=== PATIENT | male | born 1960 | race Caucasian/White ===

== ENCOUNTER 2018-08-03 10:30 | Outpatient (CLI) | payer MEDICAID, SELFPAY ==
--- NOTE | 2018-08-04 10:52 | DIABASSESS_ITS ---
DESCRIPTION/ASSESSMENT: Dimas Gao presents for medical nutrition therapy for diabetes. Food Guidelines Dimas has leftovers for breakfast; today Bel[place]ian rice with vegetables and sausage. He might have toast or bagel with butter; a hot lunch of cheeseburger or fish sticks or grilled cheese; meat, vegetable and tater tots for supper. He states he gained weight when he first moved here because he didn't know anyone or where to go, and he admits to high snacking behavior. He no longer snacks and has given up sugar sweetened beverages. Physical Activity - he admits to walking only rarely secondary to lunch capacity. Medication - Metformin 500mg BID. Only 1 day of diarrhea. A1c 6.9 Risks/Related health history - denies blood pressure problems. He states he sleeps poorly, awake frequently with snoring. He also states he has numbness in legs and feet. He had 2 toenails removed secondary to fungal infection. Coping - he admits to loneliness when his fiancee is away during the week. He denies depression. INTERVENTION: Explained diagnostic criteria for diabetes including A1c and glycemic goal. Food Guidelines - reviewed diabetes food guide and discussed what he feels is possible. He is motivated to cut back on carbohydrate and increase vegetables. Physical Activity - discussed health benefits and encouraged working toward 150 minutes weekly. He can walk around the track at after work. He will carry an umbrella. Monitoring - check his blood sugar today randomly: 117. Discussed meaning of this. Discussed benefits of glucose monitoring at home. He would like to wait to monitor after his next provider visit. He would like to concentrate on food choices and physical activity. Coping - discussed effect on blood sugar. He enjoys drawing and will do this at the end of the day when he feels most down. ACTION PLAN: Dimas will look at his carbohydrate at a meal and limit to 2-3 servings; increase vegetables begin walking the track at after work ask provider about sleep concerns Individual MNT __4__ units billed TIME IN: 2629 OUT: 5540 No DM group education series being offered at this time.
== END 2018-08-03 10:50 ==
PROVIDERS: PCP Specialist/Technologist Athletic Trainer; Visit Provider Dietitian, Registered
DX: E11.9 Type 2 diabetes mellitus without complications (principal)
CPT/HCPCS: 97802

== ENCOUNTER 2018-08-29 15:56 | Outpatient (REF) | payer MEDICAID, SELFPAY ==
[2018-08-29 21:48] LABS: Cholesterol 235 mg/dL (50-200); HDL Cholesterol 25 mg/dL (40-60); LDL CHOLESTEROL 147 mg/dL (<100); Triglyceride 363 mg/dL (30-150)
== END 2018-08-29 16:16 ==
LOC: NCHCN 15:56
PROVIDERS: PCP Specialist/Technologist Athletic Trainer; Visit Provider Specialist/Technologist Athletic Trainer
DX: E78.5 Hyperlipidemia, unspecified (principal)
CPT/HCPCS: 80061; 83721

== ENCOUNTER 2019-03-13 14:30 | Outpatient (REF) | payer MEDICAID, SELFPAY ==
[2019-03-13 22:05] LABS: ALT 153 U/L (12-78); AST 131 U/L (15-37); Albumin 3.9 g/dL (3.4-5.0); Alkaline Phosphatase 69 U/L (46-116); Anion Gap 12.6 mmol/L (3-11); BUN 17 mg/dL (7-18); Bilirubin, Total 0.7 mg/dL (0.2-1.0); CO2 24.4 mmol/L (21.0-32.0); CREATININE 1.24 mg/dL (0.70-1.30); Calcium 8.9 mg/dL (8.5-10.1); Chloride 101 mmol/L (98-107); Estimated GFR 59.88 (mL/min/1.73m2); Glucose 252 mg/dL (70-100); HDL Cholesterol 19 mg/dL (40-60); LDL CHOLESTEROL 77 mg/dL (<100); Sodium 138 mmol/L (136-145); Total Protein 8.2 g/dL (6.4-8.2)
[2019-03-13 22:23] LABS: Bilirubin, Direct 0.15 mg/dL (0.00-0.20); Creatine Kinase 415 U/L (39-308)
== END 2019-03-13 14:50 ==
LOC: NCHCN 14:30
PROVIDERS: PCP Specialist/Technologist Athletic Trainer; Visit Provider Nurse Practitioner Family
DX: E11.9 Type 2 diabetes mellitus without complications (principal); E78.5 Hyperlipidemia, unspecified; I10 Essential (primary) hypertension; R74.8 Abnormal levels of other serum enzymes
CPT/HCPCS: 80053; 80076; 82550; 83721; 83718

== ENCOUNTER 2019-05-23 11:40 | Outpatient (REF) | payer MEDICAID, SELFPAY ==
[2019-05-23 22:33] LABS: ALT 88 U/L (12-78); AST 76 U/L (15-37); LDL CHOLESTEROL 65 mg/dL (<100)
[2019-05-23 23:27] LABS: HDL Cholesterol 22 mg/dL (40-60)
[2019-05-23 23:39] LABS: Creatine Kinase 378 U/L (39-308)
== END 2019-05-23 12:00 ==
LOC: NCHCN 11:40
PROVIDERS: PCP Specialist/Technologist Athletic Trainer; Visit Provider Nurse Practitioner Family
DX: E78.5 Hyperlipidemia, unspecified (principal); I10 Essential (primary) hypertension; E11.9 Type 2 diabetes mellitus without complications; F41.8 Other specified anxiety disorders; R74.8 Abnormal levels of other serum enzymes; G47.9 Sleep disorder, unspecified
CPT/HCPCS: 82550; 83721; 83036; 83718; 84450; 84460

== ENCOUNTER 2019-11-24 08:38 | Outpatient (REF) | payer MEDICAID, SELFPAY ==
[2019-11-24 19:31] LABS: ALT 106 U/L (16-63); AST 104 U/L (15-37); Anion Gap 9.9 mmol/L (3-11); BUN 17 mg/dL (7-18); CO2 26.1 mmol/L (21.0-32.0); CREATININE 1.24 mg/dL (0.70-1.30); Calcium 9.2 mg/dL (8.5-10.1); Chloride 103 mmol/L (98-107); Creatine Kinase 561 U/L (39-308); Estimated GFR 59.67 (mL/min/1.73m2); Glucose 162 mg/dL (74-106); Sodium 139 mmol/L (136-145)
[2019-11-24 19:49] LABS: Hemoglobin A1C 7.7 % (3.8-5.6)
[2019-11-24 20:02] LABS: Calculated LDL 68 mg/dL (<100); Cholesterol 137 mg/dL (<200); HDL Cholesterol 20 mg/dL (40-60); Triglyceride 247 mg/dL (<150)
== END 2019-11-24 08:58 ==
LOC: NCHCN 08:38
PROVIDERS: PCP Specialist/Technologist Athletic Trainer; Visit Provider Nurse Practitioner Family
DX: I10 Essential (primary) hypertension (principal); E78.5 Hyperlipidemia, unspecified; E11.9 Type 2 diabetes mellitus without complications
CPT/HCPCS: 80048; 80061; 82550; 83036; 84450; 84460

== ENCOUNTER 2020-01-12 21:05 | Emergency (ER) | payer MEDICAID, SELFPAY ==
[2020-01-12 21:10] VITALS: BP 186/89; PULSE 86; RESP 18; TEMP 36.5; O2SAT 97
--- NOTE | 2020-01-12 21:15 | W.ED.GENAD ---
Discharge Plan Disposition Patient Disposition: HOME Condition: Good Discharge Details Chief Complaint: Anxiety Clinical Impression: Encounter for medical screening examination, Anxiety Primary Care Provider: Colby Gaffney ED Provider: Matty Bishop Home Meds and New Rx's Prescriptions: No Action trazodone 50 mg tablet 50 mg PO HS RF: 0 Jardiance 10 mg tablet 10 mg PO HS RF: 0 metformin 1,000 mg tablet 1,000 mg PO DAILY RF: 0 ibuprofen 600 mg tablet 600 mg PO BID RF: 0 losartan 100 mg tablet 100 mg PO DAILY RF: 0 cholecalciferol (vitamin D3) 50 mcg (2,000 unit) tablet 50 mcg PO DAILY RF: 0 Discharge Instructions Instructions: Anxiety (ED) Additional Instructions: At this time your EKG shows no signs of a heart attack. I do feel that you are correct in your initial assessment that this was a panic attack. Things are very challenging during this current political environment. I do feel that you are cleared to return to work at this time, please follow-up closely with your primary care provider at your scheduled appointment on Wednesday. If you notice any worsening of your symptoms, or any new symptoms such as vomiting, diarrhea, fever, chills, shortness of breath, chest pain, numbness, weakness, or fainting , please return immediately to the emergency department for reevaluation. Please follow up with your primary care provider as soon as possible for reassessment and reevaluation. As always, it was a pleasure participating in your medical care today. Stand Alone Forms: Work Release Referrals: Colby Gaffney [Primary Care Provider] - Medical Decision Making This is a 59-year-old male with a past medical history of borderline diabetes, hypertension, and a history of panic attacks who presents for evaluation after panic attack. Patient states that with the recent political climate, the current Covidien pandemic, in addition to his brother being very sick with an unrelated issue, he had a mild panic attack while driving to work. He felt panicked, slightly short of breath and sweaty. He was able to call his PCP who talked him through the scenario, the symptoms resolved completely. It was unrelated to exertion. He denies any significant chest pain, tearing sensation, continued difficulty breathing or other abnormality. Denies PE risk factors such as recent long car rides, immobilization, recent surgery, prior history of DVT or PE, family history of PE or DVT, morbid obesity, exogenous estrogen and smoking, hemoptysis, history of cancer. He denies any history of cardiac disease, or heart attack. He is not a smoker. He states that he has had symptoms identical to this in the past, which were panic attacks then. He states that there is no difference or change compared to normal. He presents today because his work requested that he come to be evaluated. The patient denies any recent foreign travel or contact with recent immigrants, Travelers, or peoples of [place] or [facility]. The patient denies any recent travel to high risk countries or high risk areas in the [place], or other areas of noted or significant coronavirus infection. Additionally he denies any concerning symptoms of cough, fever, shortness of breath. Physical exam is completely unremarkable. Screening EKG shows no evidence of STEMI. Signs and symptoms clinically consistent with a panic attack. Patient is requesting discharge and requesting permission to go back to work. I do feel that this is all reasonable. Patient will be discharged home. No clinical evidence of a viral infection or other abnormality concerning for cocaine. Signs and symptoms clinically inconsistent with ACS, STEMI, PE or dissection. I have extensively reviewed the treatment plan and discharge instructions with the patient. I have addressed all patient concerns at this time. The patient was made aware of what symptoms to monitor for that would warrant a return to the emergency department. Discussed the plan with the patient, they demonstrate verbal understanding and agreement with our assessment and plan at this time. EKG 21: 23 Rate 86, intervals normal, no evidence of STEMI. No significant ST elevation or depression. HPI General Date/Time Provider Initiated Documentation: 01/12/20 21:06. HPI Narrative: This is a 59-year-old male with a past medical history of borderline diabetes, hypertension, and a history of panic attacks who presents for evaluation after panic attack. Patient states that with the recent political climate, the current Covidien pandemic, in addition to his brother being very sick with an unrelated issue, he had a mild panic attack while driving to work. He felt panicked, slightly short of breath and sweaty. He was able to call his PCP who talked him through the scenario, the symptoms resolved completely. It was unrelated to exertion. He denies any significant chest pain, tearing sensation, continued difficulty breathing or other abnormality. Denies PE risk factors such as recent long car rides, immobilization, recent surgery, prior history of DVT or PE, family history of PE or DVT, morbid obesity, exogenous estrogen and smoking, hemoptysis, history of cancer. He denies any history of cardiac disease, or heart attack. He is not a smoker. He states that he has had symptoms identical to this in the past, which were panic attacks then. He states that there is no difference or change compared to normal. He presents today because his work requested that he come to be evaluated. The patient denies any recent foreign travel or contact with recent immigrants, Travelers, or peoples of [facility] or [facility]. The patient denies any recent travel to high risk countries or high risk areas in the [place], or other areas of noted or significant coronavirus infection. Additionally he denies any concerning symptoms of cough, fever, shortness of breath. Related Data Home Medications Medication Instructions Recorded Confirmed cholecalciferol (vitamin D3) 01/12/20 01/12/20 empagliflozin [Jardiance] mg 01/12/20 01/12/20 ibuprofen 01/12/20 01/12/20 losartan 01/12/20 01/12/20 metformin mg 01/12/20 01/12/20 trazodone 01/12/20 01/12/20 Allergies Allergy/AdvReac Type Severity Reaction Status Date / Time No Known Allergies Allergy Unverified 01/12/20 21:15 General Stated Complaint: Anxiety WILIAN: 4 Review of Systems All systems reviewed & are unremarkable except as noted in HPI and below PFSH Medical History (Updated 01/12/20 @ 21:19 by Matty Bishop DO) Anxiety (Chronic) Hypertension (Chronic) Prediabetes (Acute) Surgical History (Updated 01/12/20 @ 21:25 by Teresa Phan) No history of previous surgery (Acute) Exam Narrative Exam Narrative: 1.Const: Well-nourished, Well-developed, appearing stated age 2.Eyes: PERRL, no conjunctival injection, and symmetrical lids. 3.ENT: Atraumatic external nose and ears. Moist MM. Neck: Symmetric, trachea midline, No thyromegaly. 4.CVS: +S1/S2, No murmurs or gallops. Peripheral pulses 2+ and equal in all extremities. Brisk capillary refill in all extremities. 5.RESP: Unlabored respiratory effort. Clear to auscultation bilaterally. No wheezes rales or rhonchi 6.GI: Soft, Nontender/Nondistended, No hepatosplenomegaly. No guarding or rebound. 7.MSK: Normocephalic/Atraumatic, Extremities w/o deformity or ttp No cyanosis or clubbing, Normal movement of all extremities 8.Skin: Warm, Dry. No rashes or lesions. 9.Neuro: shaker flatwork II-XII grossly intact. Sensation grossly intact, no focal neurologic deficits. 10.Psych: (AAO) x3. Appropriate mood and affect Course Vital Signs Vital signs: Vital Signs Temperature 36.5 C 01/12/20 21:10 Pulse 86 01/12/20 21:10 Respiratory Rate 18 01/12/20 21:10 Blood Pressure 186/89 H 01/12/20 21:10 Pulse Oximetry 97 01/12/20 21:10 Temperature 36.5 C 01/12/20 21:10 Temperature Source Skin 01/12/20 21:10 Pulse 86 01/12/20 21:10 Respiratory Rate 18 01/12/20 21:10 Blood Pressure 186/89 H 01/12/20 21:10 Pulse Oximetry 97 01/12/20 21:10 Oxygen Delivery Method Room Air 01/12/20 21:10 Oxygen Flow Rate 0 01/12/20 21:10 Pain Level 0 01/12/20 21:10
[2020-01-12 21:27] VITALS: RESP 16
[2020-01-12 21:32] VITALS: BP 180/81
== END 2020-01-12 21:45 | disposition home or self-care (01) ==
PROVIDERS: Emergency Provider Student in an Organized Health Care Education/Training Program; PCP Specialist/Technologist Athletic Trainer
DX: F41.8 Other specified anxiety disorders (principal); Z04.89 Encounter for examination and observation for other specified reasons; I10 Essential (primary) hypertension
CPT/HCPCS: 93005; 99283; 93010

== ENCOUNTER 2020-02-28 12:03 | Outpatient (REF) | payer MEDICAID, SELFPAY ==
[2020-02-28 19:23] LABS: Calculated LDL 137 mg/dL (<100); Cholesterol 209 mg/dL (<200); HDL Cholesterol 26 mg/dL (40-60); Triglyceride 230 mg/dL (<150)
[2020-02-28 21:09] LABS: Creatine Kinase 426 U/L (39-308)
== END 2020-02-28 12:23 ==
LOC: NCHCN 12:03
PROVIDERS: PCP Specialist/Technologist Athletic Trainer; Visit Provider Nurse Practitioner Family
DX: E78.5 Hyperlipidemia, unspecified (principal); K92.1 Melena; D12.6 Benign neoplasm of colon, unspecified
CPT/HCPCS: 80061; 82550

== ENCOUNTER 2020-03-21 08:12 | Outpatient (CLI) | payer MEDICAID, SELFPAY ==
--- NOTE | 2020-03-21 07:30 | DI.US_ITS ---
EXAM: US ABDOMEN CLINICAL HISTORY: STEATOSIS OF LIVER, K76.0,ELEVATED LFT'S TECHNIQUE: Ultrasound abdomen performed using standard protocol. COMPARISON: No exams were available for comparison FINDINGS: ABDOMINAL AORTA AND IVC: Visualized portions normal caliber. PANCREAS: Normal where visualized. LIVER: The liver is enlarged at 21 cm. There is diffusely increased echogenicity consistent with mil d to moderate hepatic steatosis.. Hepatopedal flow in the Portal Vein. GALLBLADDER: Multiple stones are noted in the gallbladder. The gallbladder is somewhat contracted. No evidence of wall thickening. No pericholecystic fluid identified. BILIARY SYSTEM: Common bile duct measures 3 millimeters. No intrahepatic biliary ductal dilation. ELLIOTT'S SIGN: Negative. KIDNEYS: Kidneys are symmetric in size. No evidence of renal calculi. No evidence of hydronephrosis. No renal mass or cyst identified. SPLEEN: 14.2 cm in length.. ASCITES: None seen. IMPRESSION: Mild to moderate hepatic steatosis. No focal liver lesions are visible. Cholelithiasis.. DATA REPOSITORY:
== END 2020-03-21 08:32 ==
PROVIDERS: PCP Nurse Practitioner Family; Visit Provider Nurse Practitioner Family
DX: K76.0 Fatty (change of) liver, not elsewhere classified (principal); R79.89 Other specified abnormal findings of blood chemistry; K80.20 Calculus of gallbladder without cholecystitis without obstruction
CPT/HCPCS: 76700

== ENCOUNTER 2020-05-01 13:15 | Outpatient (REF) | payer MEDICAID, SELFPAY ==
[2020-05-01 20:46] LABS: ALT 82 U/L (16-63); AST 94 U/L (15-37); HDL Cholesterol 26 mg/dL (40-60); LDL CHOLESTEROL 83 mg/dL (<100)
[2020-05-01 21:02] LABS: Creatine Kinase 503 U/L (39-308)
== END 2020-05-01 13:35 ==
LOC: NCHCN 13:15
PROVIDERS: PCP Nurse Practitioner Family; Visit Provider Nurse Practitioner Family
DX: I10 Essential (primary) hypertension (principal); E78.5 Hyperlipidemia, unspecified; E11.9 Type 2 diabetes mellitus without complications; K76.0 Fatty (change of) liver, not elsewhere classified; R74.8 Abnormal levels of other serum enzymes
CPT/HCPCS: 82550; 83721; 83718; 84450; 84460

== ENCOUNTER 2020-07-31 11:47 | Outpatient (REF) | payer MEDICAID, SELFPAY ==
[2020-07-31 21:00] LABS: ALT 57 U/L (16-63); AST 55 U/L (15-37); HDL Cholesterol 32 mg/dL (40-60); LDL CHOLESTEROL 75 mg/dL (<100)
[2020-07-31 21:13] LABS: Creatine Kinase 329 U/L (39-308)
== END 2020-07-31 12:07 ==
LOC: NCHCN 11:47
PROVIDERS: PCP Nurse Practitioner Family; Visit Provider Nurse Practitioner Family
DX: E78.5 Hyperlipidemia, unspecified (principal); R74.8 Abnormal levels of other serum enzymes
CPT/HCPCS: 82550; 83721; 83718; 84450; 84460

== ENCOUNTER 2020-10-08 20:01 | Outpatient (REF) | payer MEDICAID, SELFPAY ==
[2020-10-10 16:38] LABS: COVID-19 RT-PCR UVMMC Result Negative (Negative)
== END 2020-10-08 20:21 ==
LOC: NCHCN 20:01
PROVIDERS: PCP Nurse Practitioner Family; Visit Provider Nurse Practitioner Family
DX: Z11.59 Encounter for screening for other viral diseases (principal)
CPT/HCPCS: U0003

== ENCOUNTER 2020-10-24 16:02 | Outpatient (REF) | payer MEDICAID, SELFPAY ==
[2020-10-27 13:19] LABS: COVID-19 RT-PCR UVMMC Result Negative (Negative)
== END 2020-10-24 16:22 ==
LOC: NCHCN 16:02
PROVIDERS: PCP Nurse Practitioner Family; Visit Provider Family Medicine
DX: Z11.59 Encounter for screening for other viral diseases (principal)
CPT/HCPCS: U0003

== ENCOUNTER 2020-10-29 18:54 | Outpatient (REF) | payer MEDICAID, SELFPAY ==
[2020-10-29 19:49] LABS: Anion Gap 11.2 mmol/L (3-11); BUN 12 mg/dL (7-18); CO2 24.8 mmol/L (21.0-32.0); CREATININE 1.17 mg/dL (0.70-1.30); Calcium 9.3 mg/dL (8.5-10.1); Chloride 103 mmol/L (98-107); Glucose 95 mg/dL (74-106); Potassium 3.7 mmol/L (3.5-5.1); Sodium 139 mmol/L (136-145)
== END 2020-10-29 19:14 ==
LOC: NCHCN 18:54
PROVIDERS: PCP Nurse Practitioner Family; Visit Provider Nurse Practitioner Family
DX: I10 Essential (primary) hypertension (principal)
CPT/HCPCS: 80048

== ENCOUNTER 2021-05-27 10:57 | Outpatient (REF) | payer MEDICAID, SELFPAY ==
[2021-05-27 14:46] LABS: Hemoglobin A1C 5.9 % (<5.7)
[2021-05-27 15:02] LABS: ALT 43 U/L (16-63); AST 46 U/L (15-37); Anion Gap 11.7 mmol/L (3-11); BUN 17 mg/dL (7-18); CO2 26.3 mmol/L (21.0-32.0); Calcium 9.6 mg/dL (8.5-10.1); Chloride 105 mmol/L (98-107); Glucose 121 mg/dL (74-106); HDL Cholesterol 33 mg/dL (40-60); LDL CHOLESTEROL 95 mg/dL (<100); Potassium 4.1 mmol/L (3.5-5.1); Sodium 143 mmol/L (136-145)
[2021-05-27 15:18] LABS: Creatine Kinase 349 U/L (39-308)
== END 2021-05-27 10:58 | disposition home or self-care (01) ==
LOC: NCHCN 10:57
PROVIDERS: PCP Nurse Practitioner Family; Visit Provider Nurse Practitioner Family
DX: I10 Essential (primary) hypertension (principal); E11.9 Type 2 diabetes mellitus without complications; E78.5 Hyperlipidemia, unspecified
CPT/HCPCS: 80048; 82550; 83721; 83036; 83718; 84450; 84460

== ENCOUNTER 2021-11-26 01:23 | Outpatient (CLI) | payer MEDICAID, SELFPAY ==
--- NOTE | 2021-11-26 | DI.US_ITS ---
Exam(s) US ABDOMEN LIMITED EXAM: US ABDOMEN LIMITED CLINICAL HISTORY: CIRRHOSIS OF LIVER,K74.60,STEATOHEPITIS, K75.81 TECHNIQUE: Ultrasound abdomen performed using standard protocol. COMPARISON: US US ABDOMEN from 03/21/2020 FINDINGS: LIVER: Enlarged at 19.4 cm. Moderately increased echogenicity. Heterogeneous echotexture consistent with cirrhosis. No focal liver lesions are seen.. GALLBLADDER: cholelithiasis. No evidence of wall thickening. No pericholecystic fluid identified. ELLIOTT'S SIGN: Negative. BILIARY SYSTEM: No intrahepatic or extrahepatic biliary ductal dilation. RIGHT KIDNEY: Normal size. No evidence of renal calculi. No evidence of hydronephrosis. No suspicious renal mass. No cyst identified. PANCREAS: Normal where visualized. ABDOMINAL AORTA AND IVC: Visualized portions normal caliber. ASCITES: None seen. IMPRESSION: Cirrhotic appearing liver. No focal mass. No ascites. Cholelithiasis. DATA REPOSITORY:
== END 2021-11-26 01:43 ==
PROVIDERS: PCP Nurse Practitioner Family; Visit Provider Nurse Practitioner Adult Health
DX: K75.81 Nonalcoholic steatohepatitis (NASH) (principal); K74.60 Unspecified cirrhosis of liver; K80.20 Calculus of gallbladder without cholecystitis without obstruction
CPT/HCPCS: 76705

== ENCOUNTER 2021-12-08 17:19 | Outpatient (REF) | payer MEDICAID, SELFPAY ==
[2021-12-08 19:54] LABS: HCT 44.9 % (40.0-50.0); HGB 14.7 g/dL (13.5-17.5); MCH 28.5 pg (27.0-33.0); MCHC 32.7 % (32.0-36.0); MPV 11.7 fL (8.0-11.0); Platelet Count 153 10^3/uL (130-400); RBC 5.16 10^6/uL (4.36-5.78); RDW 13.6 % (11.8-14.1); RDW-SD 43.9 fL; WBC 6.26 10^3/uL (4.4-10.8)
[2021-12-08 20:09] LABS: ALT 65 U/L (16-63); AST 58 U/L (15-37); Albumin 4.1 g/dL (3.4-5.0); Alkaline Phosphatase 60 U/L (46-116); BUN 13 mg/dL (7-18); Bilirubin, Total 0.9 mg/dL (0.2-1.0); Calcium 9.1 mg/dL (8.5-10.1); Chloride 105 mmol/L (98-107); Glucose 114 mg/dL (74-106); Potassium 4.2 mmol/L (3.5-5.1); Sodium 140 mmol/L (136-145)
[2021-12-08 20:16] LABS: Hemoglobin A1C 6.2 % (<5.7)
== END 2021-12-08 17:20 | disposition home or self-care (01) ==
LOC: NCHCN 17:19
PROVIDERS: PCP Nurse Practitioner Family; Visit Provider Nurse Practitioner Family
DX: E11.9 Type 2 diabetes mellitus without complications (principal); K76.6 Portal hypertension
CPT/HCPCS: 80053; 85027; 83036

== ENCOUNTER 2021-12-17 01:18 | Outpatient (CLI) | payer MEDICAID, SELFPAY ==
[2021-12-17 11:58] LABS: Source Nasal/Nares
[2021-12-17 14:19] LABS: COVID-19 PCR Negative (Negative)
== END 2021-12-17 01:19 | disposition home or self-care (01) ==
LOC: LBO 01:18
PROVIDERS: PCP Nurse Practitioner Family; Visit Provider Ophthalmology
DX: Z20.822 Contact with and (suspected) exposure to COVID-19 (principal)
CPT/HCPCS: 87635

== ENCOUNTER 2021-12-19 07:17 | Day surgery (SDC) | payer MEDICAID, SELFPAY ==
[2021-12-19 08:05] VITALS: BP 140/82; PULSE 65; RESP 16; TEMP 36.5; O2SAT 96
[2021-12-19] MEDS: Tropicam./Phenyleph. (1/2.5%) 5 ML BTL OD ×3 (08:14→08:26)
--- NOTE | 2021-12-19 08:17 | W.ANESPRE ---
General Info Date of Service Date Performed: 12/19/21 Height: 5 ft 7 in Weight: 117.3 kg Body Mass Index (BMI): 40.5 Surgical Procedure: Operation Date: 12/19/21 09:40 Proposed Procedure Side Surgeon p Cataract Extraction with IOL Implant Right Koby Pulliam MD Meds Allergies and Home Medications Allergies Allergy/AdvReac Type Severity Reaction Status Date / Time No Known Allergies Allergy Unverified 12/17/21 09:51 Home Medication Medication Instructions Recorded cholecalciferol (vitamin D3) 50 50 mcg PO DAILY 01/12/20 mcg (2,000 unit) tablet empagliflozin 10 mg tablet 10 mg PO HS 01/12/20 (Jardiance) losartan 100 mg tablet 100 mg PO DAILY 01/12/20 docusate sodium 100 mg capsule 100 mg PO BID PRN 03/04/20 (Colace) escitalopram oxalate 10 mg tablet 10 mg PO DAILY 03/04/20 gabapentin 300 mg capsule 100 mg PO TID 03/04/20 hydrocortisone 1 % topical cream 1 applic TP TID PRN 03/04/20 (Anti-Itch (hydrocortisone)) magnesium gluconate 500 mg tablet 500 mg PO BID tab 03/04/20 metformin 1,000 mg tablet 1,000 mg PO BID tab 03/04/20 trazodone 50 mg tablet 50 mg PO HS tab 03/04/20 acetaminophen 500 mg tablet 500 mg PO BID 12/16/21 atorvastatin 10 mg tablet 10 mg PO QHS 12/16/21 cyclobenzaprine 10 mg tablet 10 mg PO TID PRN 12/16/21 nadolol 20 mg tablet 20 mg PO DAILY 12/16/21 omeprazole 20 mg capsule,delayed 20 mg PO DAILY 12/16/21 release Current Visit Medications: Current Medications Generic Name Dose Route Start Last Admin Trade Name Freq PRN Reason Stop Dose Admin Acetaminophen 1,000 mg 12/19/21 06:00 Acetaminophen 500 Mg Tab PO Q4H PRN PRN Miscellaneous Medication 0 ml 12/19/21 06:00 Prednisolone 1%, Moxifloxacin 0.5%, Nepafenac 0.1% 5ml Btl OD DIRECTED [facility] Miscellaneous Medication 0 ml 12/19/21 06:00 12/19/21 08:14 Tropicam./Phenyleph. (1/2.5%) 5 Ml Btl OD 1 drp DIRECTED [facility] Administration Tetracaine HCl 0 ml 12/19/21 06:00 Tetracaine 0.5% 4 Ml Btl OD DIRECTED AN[facility] PFSH Active Problems Active Problems: Problem Status Onset Code Cortical cataract of right eye H26.9 Nuclear sclerotic cataract of right eye H25.11 Internal hemorrhoids K64.8 Medical History Medical History Acid reflux Anxiety Blood in stool Cirrhosis of liver portal hypertension/ HX esophageal varices Degeneration of cervical intervertebral disc Depression Diabetes mellitus Elevated liver enzymes External hemorrhoid History of gallstones Hyperlipidemia Hyperplastic colon polyp (~04/21/17) 03/04/20 per PCP this was done in [place]. Hypertension Increased creatine kinase level Insomnia Lower back pain Onychomycosis HU (obstructive sleep apnea) Panic attack Periodic limb movement disorder Positive occult stool blood test Prediabetes Shoulder impingement syndrome Steatosis of liver Thoracic back pain Vitamin D deficiency Surgical History Surgical History History of colonoscopy History of esophagogastroduodenoscopy (EGD) Tobacco Smoking/Tobacco Use Status: Never Alcohol Alcohol Intake: current Alcohol intake frequency: a few times a month Substance Use Substance use: Never Substance use type: does not use Vital Signs and Lab Results Vital Signs Most Recent Vital Signs in EMR: Most Recent Vital Signs Temp Pulse Resp BP Pulse Ox 36.5 C 65 16 140/82 96 12/19/21 08:05 12/19/21 08:05 12/19/21 08:05 12/19/21 08:05 12/19/21 08:05 Point of Care Results Point of Care Results: Finger Stick Blood Glucose 121 12/19/21 07:36 Lab Results Blood Type / Crossmatch: No Data to Display Complete Blood Count: White Blood Count 6.26 10^3/uL (4.4-10.8) 12/08/21 15:30 12/08/21 Red Blood Count 5.16 10^6/uL (4.36-5.78) 12/08/21 15:30 12/08/21 Hemoglobin 14.7 g/dL (13.5-17.5) 12/08/21 15:30 12/08/21 Hematocrit 44.9 % (40.0-50.0) 12/08/21 15:30 12/08/21 Platelet Count 153 10^3/uL (130-400) 12/08/21 15:30 12/08/21 Complete Metabolic Panel: Sodium Level 140 mmol/L (136-145) 12/08/21 15:30 12/08/21 Potassium Level 4.2 mmol/L (3.5-5.1) 12/08/21 15:30 12/08/21 Chloride Level 105 mmol/L (98-107) 12/08/21 15:30 12/08/21 Carbon Dioxide Level 26.0 mmol/L (21.0-32.0) 12/08/21 15:30 12/08/21 Blood Urea Nitrogen 13 mg/dL (7-18) 12/08/21 15:30 12/08/21 Creatinine 1.0 mg/dL (0.70-1.30) 12/08/21 15:30 12/08/21 Estimated GFR/1.73 m2 >= 60.00 (mL/min/1.73m2) 12/08/21 15:30 12/08/21 Calcium Level 9.1 mg/dL (8.5-10.1) 12/08/21 15:30 12/08/21 Albumin 4.1 g/dL (3.4-5.0) 12/08/21 15:30 12/08/21 Glucose Level 114 mg/dL (74-106) H 12/08/21 15:30 12/08/21 Hemoglobin A1c 6.2 % (<5.7) H 12/08/21 15:30 12/08/21 Liver Function Panel: Alanine Aminotransferase (ALT/SGPT) 65 U/L (16-63) H 12/08/21 15:30 12/08/21 Aspartate Amino Transf (AST/SGOT) 58 U/L (15-37) H 12/08/21 15:30 12/08/21 Coagulation Panel: No Data to Display Cardiac Panel: No Data to Display Arterial Blood Gas: No Data to Display Venous Blood Gas: No Data to Display Pancreas Panel: No Data to Display Thyroid Panel: No Data to Display Infectious Disease: Coronavirus (COVID-19)(PCR) Negative (Negative) 12/17/21 10:06 12/17/21 Coronavirus 2019 Source Nasal/Nares 12/17/21 10:06 12/17/21 Blood Cultures: No Data to Display Toxicology Panel: No Data to Display Anesthesia Assessment and Plan Anesthesia History Personal History: No History of Anesthesia Complications Family History: No Family History of Anesthesia Complications Exercise Tolerance Exercise Tolerance: Metabolic Equivalents<4 Pertinent Negatives Pertinent Negatives: No Symptoms of GERD (On omeprazole), No Major Cardiovascular Symptoms or Complaints, No Major Pulmonary Symptoms or Complaints and No History of CVA/TIA Cardiac & Pulmonary Exam Cardiac Exam: Normal S1/S2 Heart Sounds Pulmonary Exam: Clear Bilateral Breath Sounds Implantable Cardiac Device Does patient have a Pacemaker or an ICD?: No Airway Exam Known Difficult Airway: No Mallampati Class: 2 Mouth Opening: Normal (> 3cm) Thyromental Distance: Greater than 3 cm Facial Hair: Full Arias Neck Range of Motion: Full ROM Neck Circumference: Thick Teeth Condition: Edentulous ASA Classification ASA Score: ASA 3 Emergency Case?: No NPO Status NPO Status: NPO Clears >2 hours, Solids >8 hours Anesthesia Plan Resuscitation Status: Full Code Anesthesia Technique: MAC Anesthesia Airway Planned: Natural Airway Monitors Used: Standard Monitors Preoperative Comments:: Hx of cirrhosis, portal HTN, esophageal varicies, and panic attacks
[2021-12-19 08:38] VITALS: BMI 40.5
[2021-12-19] MEDS: Balanced Salt Soln.-PLUS 500 ML BAG (09:00)
[2021-12-19] MEDS: Tetracaine 0.5% 4 ML BTL OD (09:00)
[2021-12-19] MEDS: Lidocaine 2% Jelly 6 ML SYR (09:02)
[2021-12-19] MEDS: Duovisc Viscoelastic System EACH 1 EACH (09:03)
[2021-12-19] MEDS: Povidone-Iodine Ophth 30 ML BTL (09:03)
--- NOTE | 2021-12-19 09:17 | W.PM.DSUDISC ---
Discharge Plan Disposition Patient Disposition: HOME Condition: Good Discharge Details Attending Provider: Koby Pulliam Primary Care Provider: Netta Mccollum Home Meds and New Rx's Prescriptions: No Action docusate sodium [Colace] 100 mg capsule 100 mg PO BID PRN0RF escitalopram oxalate 10 mg tablet 10 mg PO DAILY 0RF gabapentin 300 mg capsule 100 mg PO TID 0RF magnesium gluconate 500 mg tablet 500 mg PO BID 0RF trazodone 50 mg tablet 50 mg PO HS 0RF Label Comments: TK 1/2 T PO ATN PRF INSOMNIA metformin 1,000 mg tablet 1,000 mg PO BID 0RF Label Comments: TAKE 1 TABLET BY MOUTH TWICE A DAY hydrocortisone [Anti-Itch (HC)] 1 % cream 1 applic TP TID PRN0RF Jardiance 10 mg tablet 10 mg PO HS 0RF Label Comments: TK 1 T PO D losartan 100 mg tablet 100 mg PO DAILY 0RF Label Comments: TK 1 T PO QD cholecalciferol (vitamin D3) 50 mcg (2,000 unit) tablet 50 mcg PO DAILY 0RF Label Comments: TAKE 1 TABLET BY MOUTH DAILY cyclobenzaprine 10 mg Tablet 10 mg PO TID PRN0RF atorvastatin 10 mg Tablet 10 mg PO QHS 0RF acetaminophen 500 mg Tablet 500 mg PO BID 0RF nadolol 20 mg Tablet 20 mg PO DAILY 0RF omeprazole 20 mg Capsule,Delayed Release(Dr/Ec) 20 mg PO DAILY 0RF Discharge Instructions Stand Alone Forms: Post-op Topical Cataract, Karl Hancockey (DSU) Discharge Orders Discharge Orders: Discharge Order (Routine); Ordered 12/19/21 Ordered By: Koby Pulliam DS: Diagnosis Discharge Diagnosis (1) Cortical cataract of right eye: Status: Resolved (2) Nuclear sclerotic cataract of right eye: Status: Resolved
[2021-12-19 09:18] VITALS: BP 138/81; PULSE 67; RESP 16; TEMP 36.4; O2SAT 96
--- NOTE | 2021-12-19 09:18 | W.PM.OP ---
Date of service: 12/19/21 Time of Service: 09:18 Operative Note Operative Note DATE OF PROCEDURE: 05/12/21 PRE-OP DIAGNOSIS: Nuclear/cortical cataract, right eye POST-OP DIAGNOSIS: same PROCEDURE: Cataract extraction using phacoemulsification with intraocular lens implant, right eye SURGEON: Koby Pulliam ANESTHESIA TYPE: Local By Surgeon and MAC Refer to Anesthesia Record ESTIMATED BLOOD LOSS: 0 PATHOLOGY: none sent COMPLICATIONS: None Patient was transported to: same day Patient's condition: stable Implants: Abraham & Abraham/GABE Tecnis [id number] Indications: Progressive visual loss due to cataract, right eye Procedure Description: CATARACT SURGERY OPERATIVE REPORT PREOPERATIVE DIAGNOSIS: 1. Nuclear/cortical cataract, right eye POSTOPERATIVE DIAGNOSIS: Same OPERATION: 1. Cataract extraction using phacoemulsification with posterior chamber intraocular lens implant, right eye. IOL: IOL Light Bulb Tester/Model: Abraham & Abraham / GABE Tecnis [id number] IOL Power: + 22.0 diopters IOL Serial Number: [id number] Optic Diameter: 6.0mm Haptic/Overall Diameter: 13.0mm PHACO INFO: Aniceto [employer] Vision System with OZil and Active Fluidics Cumulative Dispersed Energy (CDE): 5.55seconds SURGEON: Koby Pulliam MD, REMI ANESTHESIA: Monitored Anesthesia Care (MAC), with local sub-tenon's anesthetic infiltration COMPLICATIONS: None SPECIMENS: None INDICATIONS FOR PROCEDURE: The patient is a 61-year-old gentleman with history of diminished visual acuity in his right eye secondary to the development of nuclear/cortical cataract. He is significantly symptomatic that he desires cataract surgery and attempt to improve and maximize his vision. The option of cataract surgery was offered to the patient and he wished to proceed. PROCEDURE: The correct surgical eye was identified and marked as the right eye and the pupil was dilated in the preoperative area using mydriatics and cycloplegics. The dilated pupil size was 6.5 mm. Oral sedation was administered in the form of an Imprimis MKO Melt (midazolam 3mg/ketamine 25mg/ondansetron 2mg). The patient was brought to the operating room where cardiopulmonary monitoring was instituted and surgical time-out was performed, confirming the correct operative eye and IOL power. Topical anesthesia was administered and ophthalmic povidone-iodine 5% was instilled into the conjunctival fornices. Lidocaine gel was applied to the cornea and the phoenix-ocular area was prepped with Betadine 10% solution and draped in the usual sterile fashion for intraocular surgery, including an aperture drape. A Tegaderm transparent film dressing was cut in half and used to cover the lashes and lid margins. Care was taken to sequester the lashes and lid margins under the Tegaderm dressing. A lid speculum was placed between the lids of the operative eye and the Aniceto LuxOR Revalia operating microscope was maneuvered into position. Edilma scissors were then used to make a conjunctival buttonhole approximately 6mm posterior to the limbus in the inferonasal quadrant. Blunt dissection was carried out to expose bare sclera, and a blunt-tipped sub-tenon?s anesthesia cannula was introduced and passed posteriorly along the globe where non-preserved plain lidocaine was injected into posterior sub-Tenon?s space. A sideport knife was used to make a paracentesis port inferotemporally. Intraocular phenylephrine/lidocaine was injected into the anterior chamber. The anterior chamber was filled with viscoelastic. A 2.4mm keratome knife was used to create a half-thickness groove at the limbus and then to construct a three-plane near-clear corneal tunnel extending 2.0mm into clear cornea superiortemporally. A flap was raised on the anterior capsule and capsulorhexis forceps were used to complete a continuous curvilinear capsulorhexis of 5.5 mm. Balanced salt solution was then used to perform cortical cleaving hydrodissection and nuclear hydrodelineation until the lens could be freely rotated within the capsular bag. The lens nucleus was then disassembled and removed within the capsular bag and iris plane using phacoemulsification. Residual cortical material was removed using the I/A handpiece. The posterior capsule was carefully polished to remove as much residual lens epithelial cells as safely possible. The capsular bag was then inflated and the anterior chamber deepened with viscoelastic. The lens implant described above was inserted into the capsular bag using the GABE [place] Injector. A Kuglen hook was used to dial the IOL into position. Residual viscoelastic was then removed first from posterior to the IOL, then from the anterior chamber using the I/A handpiece. The lens implant was noted to center nicely within the capsular bag. The incisions were stromally hydrated, and the anterior chamber was reformed using BSS. Then 0.5cc of moxifloxacin 1.0mg/ml were injected into the capsular bag and anterior chamber. The incisions were checked with a Weck spear and found to be secure. Several drops of ophthalmic povidone-iodine 5% were then applied to the eye followed by two drops of Imprimis combination prednisolone/moxifloxacin/nepafenac solution. The drapes were removed and a clear plastic protective eye shield was placed over the eye. The patient was then returned to Same Day Surgery in stable condition.
[2021-12-19 09:45] VITALS: BP 140/83; PULSE 66; RESP 16; TEMP 36.8; O2SAT 95
--- NOTE | 2021-12-19 09:52 | W.ANESPOSTOP ---
Postoperative Evaluation Date, Time and Location Date Performed: 12/19/21 Time Performed: 09:18 Patient Location: Day Surgery Unit Vital Signs Most Recent Imported Vital Signs: Most Recent Vital Signs Temp Pulse Resp BP Pulse Ox 36.4 C L 67 16 138/81 96 12/19/21 09:18 12/19/21 09:18 12/19/21 09:18 12/19/21 09:18 12/19/21 09:18 Pain Score Most Recent Pain Score: Most Recent Pain Score Pain Level 0 12/19/21 09:18 Assessment Mental Status: Awake (Alert & Oriented to Patient Baseline) Airway and Respiratory Function: Patent airway with normal (patient baseline) respiratory exam Cardiovascular Function: Hemodynamically Stable Hydration Status: Adequately Hydrated Nausea & Vomiting: No Nausea or Vomiting Pain: Pt. Denies Any Pain Peripheral Nerve Block: Patient did not receive a nerve block
== END 2021-12-19 09:50 | disposition home or self-care (01) ==
PROVIDERS: PCP Nurse Practitioner Family; Visit Provider Ophthalmology
PROC: (CPT 66984; principal; 2021-12-19 09:30)
DX: H25.11 Age-related nuclear cataract, right eye (principal); I10 Essential (primary) hypertension; E11.9 Type 2 diabetes mellitus without complications; K76.0 Fatty (change of) liver, not elsewhere classified; E55.9 Vitamin D deficiency, unspecified; E78.5 Hyperlipidemia, unspecified; K21.9 Gastro-esophageal reflux disease without esophagitis
CPT/HCPCS: 66984; V2632

== ENCOUNTER 2021-12-31 02:13 | Outpatient (CLI) | payer MEDICAID, SELFPAY ==
[2021-12-31 09:37] LABS: Source Nasal/Nares
[2021-12-31 14:08] LABS: COVID-19 PCR Negative (Negative)
== END 2021-12-31 02:14 | disposition home or self-care (01) ==
LOC: LBO 02:13
PROVIDERS: PCP Nurse Practitioner Family; Visit Provider Ophthalmology
DX: Z20.822 Contact with and (suspected) exposure to COVID-19 (principal)
CPT/HCPCS: 87635

== ENCOUNTER 2022-01-02 06:30 | Day surgery (SDC) | payer MEDICAID, SELFPAY ==
[2022-01-02 06:40] VITALS: BP 116/85; PULSE 62; RESP 16; TEMP 36.5; O2SAT 98
[2022-01-02] MEDS: Tropicam./Phenyleph. (1/2.5%) 5 ML BTL OS ×3 (06:52→07:02)
--- NOTE | 2022-01-02 07:04 | ANES.PREOP_ITS ---
General Info Date of Service Date Performed: 01/02/22 Height: 5 ft 7 in Weight: 117.2 kg Body Mass Index (BMI): 40.4 Surgical Procedure: Operation Date: 01/02/22 07:40 Proposed Procedure Side Surgeon p Cataract Extraction with IOL Implant Left Koby Pulliam MD Meds Allergies and Home Medications Allergies Allergy/AdvReac Type Severity Reaction Status Date / Time No Known Allergies Allergy Verified 01/02/22 06:33 Home Medication Medication Instructions Recorded cholecalciferol (vitamin D3) 50 50 mcg PO DAILY 01/12/20 mcg (2,000 unit) tablet empagliflozin 10 mg tablet 10 mg PO HS 01/12/20 (Jardiance) losartan 100 mg tablet 100 mg PO DAILY 01/12/20 docusate sodium 100 mg capsule 100 mg PO BID PRN 03/04/20 (Colace) escitalopram oxalate 10 mg tablet 10 mg PO DAILY 03/04/20 gabapentin 300 mg capsule 100 mg PO TID 03/04/20 hydrocortisone 1 % topical cream 1 applic TP TID PRN 03/04/20 (Anti-Itch (hydrocortisone)) magnesium gluconate 500 mg tablet 500 mg PO BID tab 03/04/20 metformin 1,000 mg tablet 1,000 mg PO BID tab 03/04/20 trazodone 50 mg tablet 50 mg PO HS tab 03/04/20 acetaminophen 500 mg tablet 500 mg PO BID 12/16/21 atorvastatin 10 mg tablet 10 mg PO QHS 12/16/21 cyclobenzaprine 10 mg tablet 10 mg PO TID PRN 12/16/21 nadolol 20 mg tablet 20 mg PO DAILY 12/16/21 pantoprazole 40 mg tablet,delayed 40 mg PO DAILY 12/31/21 release Current Visit Medications: Current Medications Generic Name Dose Route Start Last Admin Trade Name Freq PRN Reason Stop Dose Admin Acetaminophen 1,000 mg 01/02/22 06:00 Acetaminophen 500 Mg Tab PO Q4H PRN PRN Miscellaneous Medication 0 ml 01/02/22 06:00 Prednisolone 1%, Moxifloxacin 0.5%, Nepafenac 0.1% 5ml Btl OS DIRECTED ANTHONY Miscellaneous Medication 0 ml 01/02/22 06:00 01/02/22 07:02 Tropicam./Phenyleph. (1/2.5%) 5 Ml Btl OS 1 drp DIRECTED ANTHONY Administration Tetracaine HCl 0 ml 01/02/22 06:00 Tetracaine 0.5% 4 Ml Btl OS DIRECTED [facility] PFSH Active Problems Active Problems: Problem Status Onset Code Internal hemorrhoids K64.8 Nuclear sclerotic cataract of right eye H25.11 Cortical cataract of right eye H26.9 Medical History Medical History Acid reflux Anxiety Blood in stool Cirrhosis of liver portal hypertension/ HX esophageal varices Degeneration of cervical intervertebral disc Depression Diabetes mellitus Elevated liver enzymes External hemorrhoid History of gallstones Hyperlipidemia Hyperplastic colon polyp (~04/21/17) 03/04/20 per PCP this was done in [place]. Hypertension Increased creatine kinase level Insomnia Lower back pain Onychomycosis HU (obstructive sleep apnea) Panic attack Periodic limb movement disorder Positive occult stool blood test Prediabetes Shoulder impingement syndrome Steatosis of liver Thoracic back pain Vitamin D deficiency Surgical History Surgical History History of colonoscopy History of esophagogastroduodenoscopy (EGD) Hx of cataract removal with insertion of prosthetic lens Tobacco Smoking/Tobacco Use Status: Never Alcohol Alcohol Intake: current Alcohol intake frequency: a few times a month Substance Use Substance use: Never Substance use type: does not use Vital Signs and Lab Results Vital Signs Most Recent Vital Signs in EMR: Most Recent Vital Signs Temp Pulse Resp BP Pulse Ox 36.5 C 62 16 116/85 98 01/02/22 06:40 01/02/22 06:40 01/02/22 06:40 01/02/22 06:40 01/02/22 06:40 Point of Care Results Point of Care Results: Finger Stick Blood Glucose 113 01/02/22 06:34 Lab Results Blood Type / Crossmatch: No Data to Display Complete Blood Count: White Blood Count 6.26 10^3/uL (4.4-10.8) 12/08/21 15:30 12/08/21 Red Blood Count 5.16 10^6/uL (4.36-5.78) 12/08/21 15:30 12/08/21 Hemoglobin 14.7 g/dL (13.5-17.5) 12/08/21 15:30 12/08/21 Hematocrit 44.9 % (40.0-50.0) 12/08/21 15:30 12/08/21 Platelet Count 153 10^3/uL (130-400) 12/08/21 15:30 12/08/21 Complete Metabolic Panel: Sodium Level 140 mmol/L (136-145) 12/08/21 15:30 12/08/21 Potassium Level 4.2 mmol/L (3.5-5.1) 12/08/21 15:30 12/08/21 Chloride Level 105 mmol/L (98-107) 12/08/21 15:30 12/08/21 Carbon Dioxide Level 26.0 mmol/L (21.0-32.0) 12/08/21 15:30 12/08/21 Blood Urea Nitrogen 13 mg/dL (7-18) 12/08/21 15:30 12/08/21 Creatinine 1.0 mg/dL (0.70-1.30) 12/08/21 15:30 12/08/21 Estimated GFR/1.73 m2 >= 60.00 (mL/min/1.73m2) 12/08/21 15:30 12/08/21 Calcium Level 9.1 mg/dL (8.5-10.1) 12/08/21 15:30 12/08/21 Albumin 4.1 g/dL (3.4-5.0) 12/08/21 15:30 12/08/21 Glucose Level 114 mg/dL (74-106) H 12/08/21 15:30 12/08/21 Hemoglobin A1c 6.2 % (<5.7) H 12/08/21 15:30 12/08/21 Liver Function Panel: Alanine Aminotransferase (ALT/SGPT) 65 U/L (16-63) H 12/08/21 15:30 12/08/21 Aspartate Amino Transf (AST/SGOT) 58 U/L (15-37) H 12/08/21 15:30 12/08/21 Coagulation Panel: No Data to Display Cardiac Panel: No Data to Display Arterial Blood Gas: No Data to Display Venous Blood Gas: No Data to Display Pancreas Panel: No Data to Display Thyroid Panel: No Data to Display Infectious Disease: 2 Coronavirus (COVID-19)(PCR) Negative (Negative) 12/31/21 08:59 12/31/21 Coronavirus 2019 Source Nasal/Nares 12/31/21 08:59 12/31/21 Blood Cultures: No Data to Display Toxicology Panel: No Data to Display Anesthesia Assessment and Plan Anesthesia History Personal History: No History of Anesthesia Complications Family History: No Family History of Anesthesia Complications Exercise Tolerance Exercise Tolerance: Metabolic Equivalents<4 Cardiac & Pulmonary Exam Cardiac Exam: Normal S1/S2 Heart Sounds Pulmonary Exam: Clear Bilateral Breath Sounds Implantable Cardiac Device Does patient have a Pacemaker or an ICD?: No Airway Exam Known Difficult Airway: No Mallampati Class: 2 Mouth Opening: Normal (> 3cm) Thyromental Distance: Greater than 3 cm Neck Range of Motion: Full ROM Neck Circumference: Thick Teeth Condition: Edentulous ASA Classification ASA Score: ASA 3 Emergency Case?: No NPO Status NPO Status: NPO Clears >2 hours, Solids >8 hours Anesthesia Plan Resuscitation Status: Full Code Anesthesia Technique: MAC Anesthesia Airway Planned: Natural Airway Monitors Used: Standard Monitors
[2022-01-02 07:06] VITALS: BMI 40.4
[2022-01-02] MEDS: Tetracaine 0.5% 4 ML BTL OS (07:26)
[2022-01-02] MEDS: Lidocaine 2% Jelly 6 ML SYR (07:26)
[2022-01-02] MEDS: Povidone-Iodine Ophth 30 ML BTL (07:26)
[2022-01-02] MEDS: Balanced Salt Soln.-PLUS 500 ML BAG (07:28)
[2022-01-02] MEDS: Duovisc Viscoelastic System EACH 1 EACH (07:28)
[2022-01-02 07:50] VITALS: BP 122/74; PULSE 62; RESP 18; TEMP 36.8; O2SAT 96
--- NOTE | 2022-01-02 07:50 | W.PM.DSUDISC ---
Discharge Plan Disposition Patient Disposition: HOME Condition: Good Discharge Details Attending Provider: Koby Pulliam Primary Care Provider: Netta Mccollum Home Meds and New Rx's Prescriptions: No Action docusate sodium [Colace] 100 mg capsule 100 mg PO BID PRN0RF escitalopram oxalate 10 mg tablet 10 mg PO DAILY 0RF gabapentin 300 mg capsule 100 mg PO TID 0RF magnesium gluconate 500 mg tablet 500 mg PO BID 0RF trazodone 50 mg tablet 50 mg PO HS 0RF Label Comments: TK 1/2 T PO ATN PRF INSOMNIA metformin 1,000 mg tablet 1,000 mg PO BID 0RF Label Comments: TAKE 1 TABLET BY MOUTH TWICE A DAY hydrocortisone [Anti-Itch (HC)] 1 % cream 1 applic TP TID PRN0RF Jardiance 10 mg tablet 10 mg PO HS 0RF Label Comments: TK 1 T PO D losartan 100 mg tablet 100 mg PO DAILY 0RF Label Comments: TK 1 T PO QD cholecalciferol (vitamin D3) 50 mcg (2,000 unit) tablet 50 mcg PO DAILY 0RF Label Comments: TAKE 1 TABLET BY MOUTH DAILY cyclobenzaprine 10 mg Tablet 10 mg PO TID PRN0RF atorvastatin 10 mg Tablet 10 mg PO QHS 0RF acetaminophen 500 mg Tablet 500 mg PO BID 0RF nadolol 20 mg Tablet 20 mg PO DAILY 0RF pantoprazole 40 mg tablet,delayed release (DR/EC) 40 mg PO DAILY 0RF Label Comments: TAKE 1 TABLET BY MOUTH EVERY DAY 30 MINUTES BEFORE SUPPER Discharge Instructions Stand Alone Forms: Post-op Topical Cataract, Karl Connelly (DSU) Discharge Orders Discharge Orders: Discharge Order (Routine); Ordered 01/02/22 Ordered By: Koby Pulliam DS: Diagnosis Discharge Diagnosis (1) Cortical cataract of left eye: Status: Resolved (2) Nuclear sclerotic cataract of left eye: Status: Resolved
--- NOTE | 2022-01-02 07:51 | ROE_ITS ---
Date of service: 01/02/22 Time of Service: 07:51 Operative Note Operative Note DATE OF PROCEDURE: 01/02/22 PRE-OP DIAGNOSIS: Nuclear/cortical cataract, left eye POST-OP DIAGNOSIS: same PROCEDURE: Cataract extraction using phacoemulsification with intraocular lens implant, left eye SURGEON: Koby Pulliam ANESTHESIA TYPE: Local By Surgeon and MAC Refer to Anesthesia Record PATHOLOGY: none sent COMPLICATIONS: None Patient was transported to: same day Patient's condition: stable Implants: Abraham and Abraham / [employer] Tecnis [id number] Indications: Progressive decreased vision due to cataract, left eye Procedure Description: CATARACT SURGERY OPERATIVE REPORT PREOPERATIVE DIAGNOSIS: 1. Nuclear/cortical cataract, left eye POSTOPERATIVE DIAGNOSIS: Same OPERATION: 1. Cataract extraction using phacoemulsification with posterior chamber intraocular lens implant, left eye. IOL: IOL Selling Specialist/Model: Abraham & Abraham / GABE Tecnis [id number] IOL Power: + 22.0 diopters IOL Serial Number: [id number] Optic Diameter: 6.0 mm Haptic/Overall Diameter: 13.0 mm PHACO INFO: An[employer] Vision System with OZil and Active Fluidics Cumulative Dispersed Energy (CDE): 3.82 seconds SURGEON: Koby Pulliam MD, REMI ANESTHESIA: Monitored A [facility] (MAC), with local sub-tenon's anesthetic infiltration COMPLICATIONS: None SPECIMENS: None INDICATIONS FOR PROCEDURE: The patient is a 61-year-old gentleman with history of diminished visual acuity in his left eye secondary to the development of nuclear and cortical cataract. He has already undergone cataract surgery in the right eye. He now presents for cataract surgery in the left. PROCEDURE: The correct surgical eye was identified and marked as the left eye and the pupil was dilated in the preoperative area using mydriatics and cycloplegics. The dilated pupil size was 7.0 mm. Oral sedation was administered in the form of an Imprimis MKO Melt (midazolam 3mg/ketamine 25mg/ondansetron 2mg). The patient was brought to the operating room where cardiopulmonary monitoring was instituted and surgical time-out was performed, confirming the correct operative eye and IOL power. Topical anesthesia was administered and ophthalmic povidone-iodine 5% was instilled into the conjunctival fornices. Lidocaine gel was applied to the cornea and the phoenix-ocular area was prepped with Betadine 10% solution and draped in the usual sterile fashion for intraocular surgery, including an aperture drape. A Tegaderm transparent film dressing was cut in half and used to cover the lashes and lid margins. Care was taken to sequester the lashes and lid margins under the Tegaderm dressing. A lid speculum was placed between the lids of the operative eye and the Ainceto LuxOR Revalia operating microscope was maneuvered into position. Edilma scissors were then used to make a conjunctival buttonhole approximately 6mm posterior to the limbus in the inferonasal quadrant. Blunt dissection was carried out to expose bare sclera, and a blunt-tipped sub-tenon?s anesthesia cannula was introduced and passed posteriorly along the globe where non- preserved plain lidocaine was injected into posterior sub-Tenon?s space. A sideport knife was used to make a paracentesis port superiorly/superiortemporally. Intraocular phenylephrine/lidocaine was injected int the anterior chamber.. The anterior chamber was filled with viscoelastic. A 2.4mm keratome knife was used to create a half-thickness groove at the limbus and then to construct a three-plane near-clear corneal tunnel extending 2.0mm into clear cornea at the 3:00 position. A flap was raised on the anterior capsule and capsulorhexis forceps were used to complete a continuous curvilinear capsulorhexis of 5.0 mm. Balanced salt solution was then used to perform cortical cleaving hydrodissection and nuclear hydrodelineation until the lens could be freely rotated within the capsular bag. The lens nucleus was then disassembled and removed within the capsular bag and iris plane using phacoemulsification. Residual cortical material was removed using the 45-degree angled silicone I/A tip with 0.3mm port. The posterior capsule was carefully polished to remove as much residual lens epithelial cells as safely possible. The capsular bag was then inflated and the anterior chamber deepened with viscoelastic. The lens implant described above was inserted into the capsular bag using the GABE [place] Injector. A Kuglen hook was used to dial the IOL into position. Residual viscoelastic was then removed first from posterior to the IOL, then from the anterior chamber using the I/A handpiece. The lens implant was noted to center nicely within the capsular bag. The incisions were stromally hydrated, and the anterior chamber was reformed using BSS. Then 0.5cc of moxifloxacin 1.0mg/ml were injected into the capsular bag and anterior chamber. The incisions were checked with a Weck spear and found to be secure. Several drops of ophthalmic povidone-iodine 5% were then applied to the eye followed by two drops of Imprimis combination prednisolone/moxifloxacin/nepafenac solution. The drapes were removed and a clear plastic protective eye shield was placed over the eye. The patient was then returned to Same Day Surgery in stable condition.
--- NOTE | 2022-01-02 08:08 | W.ANESPOSTOP ---
Postoperative Evaluation Date, Time and Location Date Performed: 01/02/22 Time Performed: 07:50 Patient Location: Day Surgery Unit Vital Signs Most Recent Imported Vital Signs: Most Recent Vital Signs Temp Pulse Resp BP Pulse Ox 36.8 C 62 18 122/74 96 01/02/22 07:50 01/02/22 07:50 01/02/22 07:50 01/02/22 07:50 01/02/22 07:50 Pain Score Most Recent Pain Score: Most Recent Pain Score Pain Level 0 01/02/22 07:50 Assessment Mental Status: Awake (Alert & Oriented to Patient Baseline) Airway and Respiratory Function: Patent airway with normal (patient baseline) respiratory exam Cardiovascular Function: Hemodynamically Stable Hydration Status: Adequately Hydrated Nausea & Vomiting: No Nausea or Vomiting Pain: Pt. Denies Any Pain Peripheral Nerve Block: Patient did not receive a nerve block
[2022-01-02 08:17] VITALS: BP 118/77; PULSE 63; RESP 16; TEMP 36.3; O2SAT 95
== END 2022-01-02 08:44 | disposition home or self-care (01) ==
LOC: SUR 08:54
PROVIDERS: PCP Nurse Practitioner Family; Visit Provider Ophthalmology
PROC: (CPT 66984; principal; 2022-01-02 07:30)
DX: H25.12 Age-related nuclear cataract, left eye (principal); E11.9 Type 2 diabetes mellitus without complications; G47.33 Obstructive sleep apnea (adult) (pediatric); E78.5 Hyperlipidemia, unspecified; Z79.84 Long term (current) use of oral hypoglycemic drugs
CPT/HCPCS: 66984; V2632

== ENCOUNTER 2022-07-28 18:41 | Outpatient (REF) | payer MEDICAID, SELFPAY ==
[2022-07-28 19:44] LABS: Hemoglobin A1C 6.3 % (<5.7)
[2022-07-28 20:03] LABS: ALT 52 U/L (16-63); AST 56 U/L (15-37); Albumin 4.1 g/dL (3.4-5.0); Alkaline Phosphatase 61 U/L (46-116); Anion Gap 10.9 mmol/L (3-11); BUN 12 mg/dL (7-18); CO2 26.1 mmol/L (21.0-32.0); Calcium 9.5 mg/dL (8.5-10.1); Chloride 105 mmol/L (98-107); Estimated GFR 85.63 (mL/min/1.73m2); Glucose 90 mg/dL (74-106); HDL Cholesterol 30 mg/dL (40-60); LDL CHOLESTEROL 59 mg/dL (<100); Potassium 3.9 mmol/L (3.5-5.1); Sodium 142 mmol/L (136-145); Total Protein 8.2 g/dL (6.4-8.2)
[2022-07-28 20:18] LABS: Creatine Kinase 491 U/L (39-308)
== END 2022-07-28 18:42 | disposition home or self-care (01) ==
LOC: NCHCN 18:41
PROVIDERS: PCP Nurse Practitioner Family; Visit Provider Nurse Practitioner Family
DX: Z00.00 Encounter for general adult medical examination without abnormal findings (principal); E78.5 Hyperlipidemia, unspecified; I10 Essential (primary) hypertension; E11.9 Type 2 diabetes mellitus without complications
CPT/HCPCS: 80053; 82550; 83721; 83036; 83718

== ENCOUNTER 2022-08-26 17:49 | Outpatient (REF) | payer MEDICAID, SELFPAY ==
--- NOTE | 2022-08-26 15:45 | SKI_PTH ---
PATIENT: Dimas Gao LOC: [facility] U#:[id number] AGE/SX: 61/M ROOM: RE08/26/[address]: Netta Mccollum : 1960 BED: DIS: 08/26/2022 SPEC #: [id number] RECD: 08/27/22 12:51 STATUS: DONNA ESPINOZA #: [id number] ARTURO: 08/26/22 15:[address]: Netta Mccollum DEPT: Surgical Specimen RECD BY: Linda Ferrer Tissues: 1 - SKIN BIOPSY(SHAVE/PUNCH) Procedures: SKIN LEVEL 4 Comments: [id number] (FORMALIN ADDED 08/27/2022 @ 11:15 am)
== END 2022-08-26 17:50 | disposition home or self-care (01) ==
LOC: NCHCN 17:49
PROVIDERS: PCP Nurse Practitioner Family; Visit Provider Nurse Practitioner Family
DX: L85.9 Epidermal thickening, unspecified (principal)
CPT/HCPCS: 88305

== ENCOUNTER 2023-01-21 01:34 | Inpatient (IN) | payer MEDICAID, SELFPAY ==
[2023-01-21] VITALS (30 sets, daily range): BP systolic 99–165; BP diastolic 60–102; PULSE 53–94; RESP 9–24; TEMP 36.3–38; O2SAT 93–97
--- NOTE | 2023-01-21 | DI.US_ITS ---
Exam(s) US ABDOMEN LIMITED EXAM: US ABDOMEN LIMITED CLINICAL HISTORY: RUQ pain, known gallstones, mild pancreatitis. TECHNIQUE: Ultrasound abdomen performed using standard protocol. COMPARISON: US US ABDOMEN LIMITED from 11/26/2021 FINDINGS: LIVER: Enlarged at 20 cm. Heterogeneous, cirrhotic appearing liver. No focal liver lesions are seen .. GALLBLADDER: Cholelithiasis. No evidence of wall thickening. No pericholecystic fluid identified. ELLIOTT'S SIGN: Negative. BILIARY SYSTEM: No intrahepatic or extrahepatic biliary ductal dilation. Right KIDNEY: No evidence of renal calculi. No evidence of hydronephrosis. No renal mass or cyst iden tified. PANCREAS: Normal where visualized. ABDOMINAL AORTA AND IVC: Visualized portions normal caliber. ASCITES: None seen. IMPRESSION: Cholelithiasis. No evidence of acute cholecystitis. Cirrhotic appearing liver. No biliary dilatation. DATA REPOSITORY:
--- NOTE | 2023-01-21 | DI.US_ITS ---
APPROVED REPORT EXAM: Comprehensive 2D, Doppler, and color-flow Echocardiogram Patient Location: In-Patient Marketing Communications Manager: Karlos Angela RDMS, RVT Indications: CP, elevated troponin Other Information Study Quality: Adequate Conclusion Normal left ventricular wall thickness and chamber size. Estimated ejection fraction is 65%. Wall m otion is normal Normal right ventricular size and systolic function Both atria are normal in size Aortic valve is trileaflet with trace regurgitation Normal mitral valve with trace regurgitation Normal tricuspid valve with trace regurgitation Wall motion Left Ventricle The left ventricle is normal size. The left ventricular systolic function is normal. The left ventric ular ejection fraction is within the normal range. There is normal left ventricular wall thickness. T here is normal LV segmental wall motion. There is no ventricular septal defect visualized. LVEF is 65 %. Right Ventricle The right ventricle is normal size. The right ventricular systolic function is normal. Atria The left atrium size is normal. The right atrium size is normal. The interatrial septum is intact wit h no evidence for an atrial septal defect. Aortic Valve The aortic valve is normal in structure. Aortic valve is trileaflet. There is no aortic valvular sten osis. Trace aortic regurgitation. Mitral Valve The mitral valve is normal in structure. No evidence of mitral valve stenosis. Trace mitral regurgit ation. Tricuspid Valve The tricuspid valve is normal in structure. There is no tricuspid valve stenosis. Trace tricuspid reg urgitation. Unable to assess PA pressure. Pulmonic Valve The pulmonary valve is normal in structure. There is no pulmonic valvular stenosis. Trivial pulmonic regurgitation. Great Vessels The aortic root is normal in size. The ascending aorta is normal in size. Aortic arch is not well vis ualized. IVC is normal in size and collapses >50% with inspiration. Pericardium There is no pericardial effusion. 2D Dimensions IVSD d PLAX 0.76 cm M: 0.6-1.2 LV Vol A2C d MOD 103.9 mL LVPW d PLAX 0.80 cm M: 0.6 - 1.2 LV Vol A4C d MOD 126.9 mL LVID d PLAX 4.45 cm M: 4.2 - 5.8 LA vol/ BSA A4C s A-L 17.1 mL/m2 LVDs 3.35 cm M: 2.5 - 4.0 LA Area A4C s MOD 14.78 cm2 Ao Root d 3.11 cm M: 3.1 - 3.7 LV EF A4C MOD 64.3 % Ao Asc Diam d 3.19 cm M: 2.6 - 3.4 LV EF A2C MOD 66.8 % LV EF Teichholz 51.9 % LV EF Biplane MOD 64.3 % LVEF (Welsh's) 64.26 % M: 52 - 72 SV 73.64 mL LV Volume 99.18 mL M: 62 - 150 SV Index 34.01 mL/m2 LV Volume Index 45.70 mL/m2 M: 34 - 74 LV Vol Biplane MOD 114.6 mL FS 26.45 % M-Mode TAPSE 3.18 cm (M/F) >1.7 LV Diastology MV E' medial 0.134 (>0.07 m/s) E/A Ratio 0.8 LV E/e MED 5.80 (<14) MV E Vmax 0.78 (0.4-1.3 m/s) MV E' lateral 0.101 (>0.1 m/s) MV A Vmax 0.95 (0.4-1.3 m/s) LV E/e LAT 7.70 (<14) MV E/A Ratio 0.80 MV E/E' medial 5.82 MV E/E' lateral 7.71 Aortic Valve LVOT Area 3.14 cm2 AoV Area Vmax 2.52 cm2 LVOT Vmax 1.17 m/s AoV Area/ BSA (Vmax) 1.16 cm2/m2 LVOT Mean Bernardo. 0.88 m/s FRIEDA Mean Bernardo. 2.27 cm2 LVOT Peak Grad 5.5 mmHg FRIEDA Mean Bernardo. Index 1.05 cm2/m2 LVOT Mean Grad 3.4 mmHg AR DT 2176 msec LVOT VTI 0.262 m AR PHT 631 msec LVOT Diam s 1.95 cm AoV Vmax 1.46 m/s Velocity Ratio 0.80 AoV Mean Bernardo. 1.21 m/s AoV Peak Grad 8.5 mmHg LVOT SV 82.31 mL AoV Mean Grad 6.2 mmHg AoV VTI 0.312 m AoV Area VTI 2.64 cm2 AoV Area/ BSA (VTI) 1.22 cm/m2 Mitral Valve MV DT 270 (160-240 msec) MV PHT 78 msec MV Area PHT 2.81 cm2 MV VTI 0.329 m MV Area VTI 2.50 (4.0-6.0 cm2) Pulmonary Valve PV Vmax 1.19 (0.5-1.5 m/s) RVOT Peak Gr. 1.91 mmHg PV Peak Grad 5.7 mmHg RVOT Mean Gr. 1.10 mmHg PV Mean Grad 3.6 mmHg RVOT VTI 0.167 m PV VTI 0.229 m RVOT Vmax 0.69 m/s Tricuspid Valve RA Pressure 3.00 mmHg
--- NOTE | 2023-01-21 01:45 | RT.EKG_ITS ---
APPROVED REPORT Exam: Resting ECG Reason for Exam: chest pain Patient Location: E HR:83 bpm ECG Measurements Heart Rate 83 AXIS NM 167 P 51 QRSd 96 QRS 80 QT 381 T 52 QTc 448 Conclusion Sinus rhythm...normal P axis, V-rate 60- 99 Probable left atrial enlargement...P >50mS, <-0.10mV V1
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
[2023-01-21] MEDS: LORazepam 1 MG TAB PO (02:02)
[2023-01-21 02:03] LABS: Abs Immature Grans 0.09 10^3/uL (0.0-0.06); Absolute Eosinophil Count 0.08 10^3/uL (0.0-0.7); Absolute Monocyte Count 1.48 10^3/uL (0.1-0.8); Basophils % 0.7; Eosinophils % 0.6; HCT 42.7 % (40.0-50.0); HGB 14.3 g/dL (13.5-17.5); Immature Grans % 0.7; Lymphocytes % 17.8; MCH 26.4 pg (27.0-33.0); MCHC 33.5 % (32.0-36.0); MCV 79 fL (80-95); MPV 10.6 fL (8.0-11.0); Monocytes % 10.8; Neutrophils % 69.4; Platelet Count 232 10^3/uL (130-400); RBC 5.42 10^6/uL (4.36-5.78); RDW 14.6 % (11.8-14.1); RDW-SD 41.2 fL; WBC 13.68 10^3/uL (4.4-10.8)
[2023-01-21] MEDS: Ketorolac 15 MG/ML VIAL IVP (02:03)
[2023-01-21 02:04] LABS: Absolute Lymphocyte Count 2.44 10^3/uL (1.2-3.4); Absolute Neutrophil Count 9.49 10^3/uL (1.2-6.7)
[2023-01-21 02:14] LABS: Lipase 100 U/L (16-77)
[2023-01-21 02:23] LABS: ALT 77 U/L (16-63); AST 50 U/L (15-37); Albumin 4.1 g/dL (3.4-5.0); Alkaline Phosphatase 83 U/L (46-116); Anion Gap 17.8 mmol/L (3-11); BUN 16 mg/dL (7-18); Bilirubin, Total 0.8 mg/dL (0.2-1.0); CO2 20.2 mmol/L (21.0-32.0); CREATININE 1.2 mg/dL (0.70-1.30); Calcium 9.3 mg/dL (8.5-10.1); Chloride 102 mmol/L (98-107); Estimated GFR 68.38 (mL/min/1.73m2); Glucose 163 mg/dL (74-106); Magnesium 1.8 mg/dL (1.8-2.4); Potassium 3.2 mmol/L (3.5-5.1); Sodium 140 mmol/L (136-145); Total Protein 8.3 g/dL (6.4-8.2)
[2023-01-21 02:26] LABS: Troponin I 72 ng/L (<or=60)
[2023-01-21] MEDS: Lidocaine 5% Patch 1 PATCH TP (02:42)
[2023-01-21] MEDS: Gabapentin 100 MG CAP PO ×3 (02:42→20:07)
[2023-01-21] MEDS: POTASSIUM CHLORIDE 20 MEQ/100 ML BAG 50 MEQ IVPB (02:50)
[2023-01-21 03:58] LABS: Troponin I 104 ng/L (<or=60)
[2023-01-21] MEDS: Aspirin 325 MG TAB PO (04:13)
[2023-01-21 04:22] LABS: Source Nasal/Nares
[2023-01-21 04:52] LABS: COVID-19 PCR Negative (Negative)
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
--- NOTE | 2023-01-21 05:22 | NUR.NOTE ---
report given to walter.pt on monitoring tech. transported to med surg no issues.Nursing Note:
[2023-01-21] MEDS: Acetaminophen 325 MG TAB PO ×2 (05:38→17:56)
--- NOTE | 2023-01-21 07:30 | RT.EKG_ITS ---
APPROVED REPORT Exam: Resting ECG Reason for Exam: elevated troponi Patient Location: I HR:73 bpm ECG Measurements Heart Rate 73 AXIS SD 171 P 53 QRSd 98 QRS 78 QT 411 T 47 QTc 453 Conclusion Sinus rhythm...normal P axis, V-rate 50- 99 Atrial premature complex...SV complex w/ short R-R interval Probable left atrial enlargement...P >50mS, <-0.10mV V1 Borderline T wave abnormalities...T/QRS ratio < 1/[address] elevation, anterior leads...ST >0.15mV in V1-V4
[2023-01-21 07:44] LABS: Lab Add On Test DONE
[2023-01-21 07:52] LABS: Lab Add On Test DONE
[2023-01-21 08:05] LABS: Calculated LDL 71 mg/dL (<100); Cholesterol 138 mg/dL (<200); HDL Cholesterol 43 mg/dL (40-60); Triglyceride 123 mg/dL (<150)
[2023-01-21 08:12] LABS: ALT 66 U/L (16-63); AST 41 U/L (15-37); Albumin 3.5 g/dL (3.4-5.0); Alkaline Phosphatase 74 U/L (46-116); Anion Gap 10.9 mmol/L (3-11); BUN 19 mg/dL (7-18); Bilirubin, Direct 0.3 mg/dL (0.0-0.2); Bilirubin, Total 0.9 mg/dL (0.2-1.0); CO2 26.1 mmol/L (21.0-32.0); CREATININE 1.1 mg/dL (0.70-1.30); Chloride 103 mmol/L (98-107); Glucose 113 mg/dL (74-106); NT-proBNP 337 pg/mL (<300); Potassium 3.4 mmol/L (3.5-5.1); Sodium 140 mmol/L (136-145); Total Protein 7.2 g/dL (6.4-8.2)
[2023-01-21 08:14] LABS: Troponin I 112 ng/L (<or=60)
--- NOTE | 2023-01-21 08:24 | NUR.NOTE ---
Off floor for testNursing Note:
[2023-01-21 08:35] LABS: Hemoglobin A1C 6.1 % (<5.7)
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
--- NOTE | 2023-01-21 10:32 | DI.RAD_ITS ---
Exam(s) XR CHEST 2V PA LATERAL EXAM: XR CHEST 2V PA LATERAL CLINICAL HISTORY: Fever, Elevated WBC count. TECHNIQUE: 2D digital imaging was performed. COMPARISON: [facility] THORACIC SPINE from 05/04/2018 FINDINGS: HEART: Normal size. Aorta: Not dilated. PULMONARY VASCULATURE: Normal. LUNGS: Clear. PLEURAL SPACE: No pleural effusion or pneumothorax. BONE:Unremarkable for age. IMPRESSION: No acute abnormality. DATA REPOSITORY: RADIATION DOSE DELIVERED:
[2023-01-21] MEDS: Nadolol 40 MG TAB 20 MG PO (11:20)
[2023-01-21] MEDS: Enoxaparin 40 MG/0.4 ML SYR SC (11:20)
[2023-01-21] MEDS: Losartan 50 MG TAB 100 MG PO (11:40)
[2023-01-21] MEDS: Gabapentin 300 MG CAP 100 MG PO (11:41)
[2023-01-21] MEDS: Cholecalciferol (Vitamin D3) 1,000 UNIT TAB 2000 UNITS PO (11:42)
[2023-01-21] MEDS: Pantoprazole 40 MG TABCR PO (11:46)
--- NOTE | 2023-01-21 11:49 | CHAPLAIN ---
Dimas was resting in bed when I visited. He easily engaged in a conversation. He was wondering if he could eat now. The sign outside his door says NPO but Dimas said he was told he could eat now and someone would bring him something. I suggested he check with his nurse.
[2023-01-21 12:21] LABS: Troponin I 80 ng/L (<or=60)
[2023-01-21 13:11] LABS: Bilirubin Negative (Negative); Blood Negative (Negative); Clarity Sl Cloudy (Clear); Glucose Negative (Negative); Ketones Negative (Negative); Leukocyte Esterase Negative (Negative); Nitrite Negative (Negative); Specific Gravity >= 1.030 (1.005-1.025); Urobilinogen 0.2 mg/dL (Up to 0.2)
[2023-01-21 13:19] LABS: Bacteria Negative HPF (Negative); C & S Indicated? No; Casts 5-10 Hyaline LPF (Negative); Crystals Negative HPF (Negative); Epithelial Cells Few HPF (Negative); Mucus Heavy (Negative); RBC Negative HPF (0-2); WBC Negative HPF (0-5)
[2023-01-21 13:50] LABS: *AMPHETAMINES SCREEN URINE Negative (Negative); *BARBITURATES SCREEN URINE Negative (Negative); *BENZODIAZEPINES SCREEN URINE Negative (Negative); Cannabinoids THC Negative (Negative); Cocaine Screen,Urine Negative (Negative); METHADONE URINE SCREEN Negative (Negative); OPIATES URINE SCREEN Negative (Negative); Tricyclic Antidepressants Negative (Negative)
[2023-01-21 18:53] LABS: BUN 17 mg/dL (7-18); Calcium 9.1 mg/dL (8.5-10.1); Chloride 103 mmol/L (98-107); Potassium 3.3 mmol/L (3.5-5.1)
[2023-01-21 18:54] LABS: CREATININE 1.1 mg/dL (0.70-1.30); Glucose 132 mg/dL (74-106); Sodium 138 mmol/L (136-145); Troponin I 50 ng/L (<or=60)
[2023-01-21] MEDS: Atorvastatin 10 MG TAB PO (20:06)
[2023-01-21] MEDS: Empaglifozin 10 MG TAB PO (22:22)
[2023-01-21] MEDS: traZODone 50 MG TAB PO (22:22)
[2023-01-21] MEDS: Magnesium Oxide 400 MG TAB PO (22:22)
[2023-01-22 02:51] VITALS: BP 104/62; PULSE 56; RESP 18; TEMP 36.1; O2SAT 94
[2023-01-22] MEDS: Acetaminophen 325 MG TAB PO (06:39)
[2023-01-22 06:47] LABS: HGB 12.2 g/dL (13.5-17.5); MCH 25.7 pg (27.0-33.0); MCHC 32.1 % (32.0-36.0); MCV 80 fL (80-95); Platelet Count 154 10^3/uL (130-400); RBC 4.75 10^6/uL (4.36-5.78); RDW 14.6 % (11.8-14.1); RDW-SD 42.7 fL; WBC 6.58 10^3/uL (4.4-10.8)
[2023-01-22 07:03] LABS: ALT 53 U/L (16-63); AST 33 U/L (15-37); Albumin 3.2 g/dL (3.4-5.0); Alkaline Phosphatase 71 U/L (46-116); Bilirubin, Direct 0.3 mg/dL (0.0-0.2); Bilirubin, Total 0.9 mg/dL (0.2-1.0); Total Protein 6.9 g/dL (6.4-8.2)
[2023-01-22 07:07] VITALS: PULSE 53
[2023-01-22 07:19] LABS: Anion Gap 11.9 mmol/L (3-11); BUN 20 mg/dL (7-18); CO2 24.1 mmol/L (21.0-32.0); CREATININE 1.2 mg/dL (0.70-1.30); Calcium 8.9 mg/dL (8.5-10.1); Chloride 105 mmol/L (98-107); Estimated GFR 68.38 (mL/min/1.73m2); Glucose 115 mg/dL (74-106); Potassium 3.5 mmol/L (3.5-5.1); Sodium 141 mmol/L (136-145)
[2023-01-22 07:30] VITALS: BP 105/62; PULSE 60; RESP 16; TEMP 37.1; O2SAT 96
[2023-01-22] MEDS: Losartan 50 MG TAB 100 MG PO (09:50)
[2023-01-22] MEDS: Enoxaparin 40 MG/0.4 ML SYR SC (09:50)
[2023-01-22] MEDS: Cholecalciferol (Vitamin D3) 1,000 UNIT TAB 2000 UNITS PO (09:51)
[2023-01-22] MEDS: Pantoprazole 40 MG TABCR PO (09:53)
[2023-01-22] MEDS: Gabapentin 100 MG CAP PO (09:53)
[2023-01-22] MEDS: Aspirin 81 MG CHEW PO (10:04)
[2023-01-22] MEDS: Nadolol 40 MG TAB 20 MG PO (10:04)
[2023-01-22 11:18] VITALS: BP 108/68; PULSE 68; RESP 18; TEMP 36.7; O2SAT 96
--- NOTE | 2023-01-22 11:46 | W.PM.DS.N ---
Date of service: 01/22/23 Time of Service: 11:46 DS: Diagnosis Discharge Diagnosis (1) Elevated troponin: Status: Acute Asessment and Plan: admission troponin I of 72 ng/L peaking at 112 6hr after admission and declining to 50 by 16 hr after admission. Initial EKG demonstrated SR w/ suggestion of LAE. Repeat EKG the next morning demonstrated SR w/ nonspecific ST-T changes w/ some upward sloping ST segments. Echo was done and showed no regional wall abnormalites and demonstrated normal LV and RV function w/ LVEF 65%. NO arrhythmias were detected during his hospitalization. Stress test could not be done while inpatient and therefore was set up for next week. Patient was begun on aspirin 81 mg daily, continued on his atorvastatin, losartan, nadolol and his diabetic meds. He was given an Rx for nitroglycerin tablets. He is to return to the hospital via EMS if he has any chest pain/pressure, dyspnea, dizziness or palpitations. (2) Elevated lipase: Status: Acute Asessment and Plan: minimal elevation w/out evidence for acute pancreatitis. he has gallstones dating back to 2019 documented on prior [place]. of his abdomen but has no laboratory or ultrasound findings of acute cholecystitis (3) Increased anion gap metabolic acidosis: Status: Resolved Asessment and Plan: transient and resolved. No evidence for DKA. (4) Cirrhosis of liver: (5) Diabetes mellitus: Status: Chronic (6) Hypertension: (7) Hyperlipidemia: (8) Thoracic back pain: Discharge Plan Disposition Patient Disposition: Home Condition: Good Discharge Details Reason For Visit: Elevated Troponin,Elevated Lipase,Abdominal Pain Admit Date/Time: 01/21/23 04:10 Admit Provider: Koby Aguila Attending Provider: Koby Aguila Primary Care Provider: [facility] Course Hospital Course: 62 yo male with a PMH of cirrhosis/portal hypertension/esophageal varices, depression/anxiety, DM2, HLD, HTN, HU, PLMD.? He presented to the ED with concerns that he was having an adverse reaction to recently prescribed methylprednisolone for a BOWMAN. He was experiencing abd discomfort and feeling shaky.? + gassiness and bloating. He also endorsed feeling his heart pound and chest discomfort while in the shower at appx 8PM prior to presentation.? The palpitations and chest discomfort had resolved before arrival.? No F/C, N/V/diarrhea. Of note, he was under the false impression that he was not to take his other medications while taking the methylprednisolone so he was not taking them. Evaluation in the E.D. included routine labs (cbc, cmp, troponin I, BNP, nasal PCR for SARS-COV2). His cmp demonstrated low potassium of 3.2 and elevated anion gap of 17.8, glucose 163 but UA was negative for ketones or glycosuria. Troponin I was elevated at 72 ng/L and later peaked at 112 by the morning of 01/21 before declining to 50 in the afternoon. CBC, rest of CMP were unremarkable. SARS-COV2 was negative for COVID-19. His EKG demonstrated SR w/ LAE. Repeat EKG the next morning demonstrated SR w/ PAC, LAE and borderline ST-T abnormalities. Echo was done and showed normal LV size and function w/ LVEF 65% and no RWMA. RV size and function were normal. No significant valvular abnormalities. Patient was monitored on telemetry and his potassium was corrected. He had no further chest pain nor pressure nor palpitations. US of his abdomen was performed and demonstrated cholelithiasis (known since prior US dating back to 2019) but no signs of acute cholecystitis. LFT also were not consistent w/ acute cholecystis. On admission his lipase was sligthly above normal at 100 but he was asymptomatic from this. He was initially put on clear liquids but diet was advanced by dinner the next day to regular diabetic/cardiac diet which he tolerated. Stress MPI test was ordered but d/t lack of staffing, no stress test could be done prior to his discharge. An outpatient stress MPI w/ lexiscan has been ordered to be done for next week. Also a cardica event recorder has been ordered. Patient has been given an Rx for aspirin and nitroglycerin and instructions to call 911 to be brought back to the E.D. in the event of chest pain/pressure, dyspnea, palpitations or dizziness. Home Meds and New Rx's Prescriptions: New aspirin 81 mg tablet,delayed release (DR/EC) 81 mg PO DAILY Qty: 90 0RF nitroglycerin 0.4 mg tablet, sublingual 0.4 mg sublingual Q5M PRNQty: 30 0RF Rx Instructions: do not exceed 3 doses per episode Continued gabapentin 300 mg capsule 100 mg PO TID trazodone 50 mg tablet 50 mg PO HS Patient Comments: TK 1/2 T PO ATN PRF INSOMNIA metformin 1,000 mg tablet 1,000 mg PO BID Patient Comments: TAKE 1 TABLET BY MOUTH TWICE A DAY Jardiance 10 mg tablet 10 mg PO HS Patient Comments: TK 1 T PO D losartan 100 mg tablet 100 mg PO DAILY Patient Comments: TK 1 T PO QD cholecalciferol (vitamin D3) 50 mcg (2,000 unit) tablet 50 mcg PO DAILY Patient Comments: TAKE 1 TABLET BY MOUTH DAILY atorvastatin 10 mg Tablet 10 mg PO QHS nadolol 20 mg Tablet 20 mg PO DAILY pantoprazole 40 mg tablet,delayed release (DR/EC) 40 mg PO DAILY Patient Comments: TAKE 1 TABLET BY MOUTH EVERY DAY 30 MINUTES BEFORE SUPPER Discharge Instructions Instructions: Nitroglycerin (By mouth), Chest Pain (DC), Heart Palpitations (DC), Nuclear Stress Test (DC) Additional Instructions: You were admitted for evaluation of abdominal/chest discomfort and palpitations. You were kept on a quality assurance monitor final and showed no arrhythmias. WE are setting you up for stress test next week and cardiac heart monitor. Should you develope further chest pain/pressure or shortness of breath or palpitations or dizziness, call 911 to be brought back to the emergency room. You have been given an Rx for aspirin and nitroglycerin. Follow the directions w/ the prescription. You had a slight rise in your heart enzymes but your EKG and your echocardiogram (heart ultrasound) did not show any evidence for damage to your heart. The stress test is being ordered to evaluate for any evidence for poor circulation of your coronary arteries and the heart monitor is being ordered to provide an extended period of monitoring for heart arrhythmias. Continue your current home medications for cholesterol, diabetes and hypertension. You will be given information as to the time and day of your stress test which should occur next week. Stand Alone Forms: Nursing Discharge Form Referrals: [facility] Cardiac Rehab [Other] - 01/25/23 9:15 am (Please arrive at this appointment at 9:00am The patient needs to hold all caffeine for 12 hours prior to the stress test, nothing to eat, drink, or smoke for 3 hours prior to the test, wear comfortable clothing and bring dry shoes (must be closed toe and closed heel, sneakers preferred) . Patient can come in through the diagnostic imaging entrance and check in at their front desk manager at 9am ) [facility] RT Dept [Other] (RT will call you to set up cardiac recorder placement. ) Netta Mccollum [Primary Care Provider] - 02/03/23 12:30 pm (Please arrive to this appointment a few minutes early. ) Activity:: Activity as Tolerated Equipment/Supplies:: No Equipment Needed Diet:: Carb Counting Discharge Orders Discharge Orders: Discharge Order (Routine); Ordered 01/22/23 Ordered By: Nadir Blackmon Ambulatory Orders: Cardiac Event Recorder (Routine) Timeframe: 1 Day Facility: [facility] - Location: Respiratory Therapy Ordered By: Nadir SIMPSON MPI rest & stress grp (Routine) Location: None Selected Ordered By: Nadir Mesa DS: Summary Time Spent with Patient providing and/or coordinating discharge services: Greater than 30 minutes Specific discharge activities: Interview/exam of patient; review of discharge instructions, completion of prescriptions/discharge instructions; discussion w/ nursing and CM; documentation of hospital visit Status at Discharge Functional status at discharge: independent ambulation Overall status at discharge: patient is back to baseline Mental Status: mental status grossly normal Speech and Movement: speech and movement normal Mood: congruent mood Affect: normal affect Exam Narrative Exam Narrative: Patient is alert/oriented, he denies any chest pain or pressure or dyspnea. Sitting up in bed, watching TV LUngs: clear Heart: RRR, no S3 or S4, no murmur Abdomen: obese, soft, nontender Extremities: no edema or cyanosis; normal movement Psych Mental Status: mental status grossly normal Speech and Movement: speech and movement normal Mood: congruent mood Affect: normal affect DS: Data Vitals/I&O Vitals and I&O: Vital Signs Temperature 36.7 C 01/22/23 11:18 Temperature Source Tympanic 01/22/23 11:18 Pulse 68 01/22/23 11:18 Pulse Rhythm Regular 01/21/23 20:31 Pulse 80 01/21/23 03:01 Respiratory Rate 18 01/22/23 11:18 Respiratory Effort Normal, Non-Labored 01/21/23 20:31 Respiratory Depth Normal 01/21/23 20:31 Respiratory Pattern Normal 01/21/23 20:31 Blood Pressure 108/68 01/22/23 11:18 Blood Pressure Mean 76 01/21/23 03:01 Blood Pressure Position Supine 01/21/23 01:31 Pulse Oximetry 96 01/22/23 11:18 Oxygen Delivery Method Room Air 01/22/23 11:18 Oxygen Flow Rate 0 01/22/23 11:18 Pain Level 0 01/22/23 07:30 Intake & Output 01/21/23 01/21/23 01/22/23 11:59 23:59 11:59 Weight 106.594 kg Other: Urine Appearance Clear Clear Voiding Methods Toilet Data Completed and Pending Labs on day of discharge: Labs from last 24 hours 01/22/23 01/22/23 01/22/23 06:35 06:35 06:35 WBC 6.58 RBC 4.75 Hgb 12.2 L D Hct 38.0 L MCV 80 MCH 25.7 L MCHC 32.1 RDW 14.6 H Plt Count 154 MPV 10.0 Sodium 141 Potassium 3.5 Chloride 105 Carbon Dioxide 24.1 Anion Gap 11.9 H BUN 20 H Creatinine 1.2 Est GFR (CKD-EPI 2020) 68.38 Glucose 115 H Calcium 8.9 Total Bilirubin 0.9 Conjugated Bilirubin 0.3 H AST 33 ALT 53 Alkaline Phosphatase 71 Troponin I Total Protein 6.9 Albumin 3.2 L Urine Color Urine Clarity Urine pH Ur Specific [place] Urine Protein Urine Ketones Urine Blood Urine Nitrite Urine Bilirubin Urine Urobilinogen Ur Leukocyte Esterase Urine RBC Urine WBC Ur Epithelial Cells Urine Crystals Urine Bacteria Urine Casts Urine Mucus Ur Culture Indicated? Urine Glucose Urine Opiates Screen Urine Methadone Screen Ur Barbiturates Screen Ur Tricyclics Screen Ur Amphetamines Screen U Benzodiazepines Scrn Urine Cocaine Screen Ur THC Screen 01/21/23 01/21/23 01/21/23 18:12 12:55 12:54 WBC RBC Hgb Hct MCV MCH MCHC RDW Plt Count MPV Sodium 138 Potassium 3.3 L Chloride 103 Carbon Dioxide 25.0 Anion Gap 10.0 BUN 17 Creatinine 1.1 Est GFR (CKD-EPI 2020) 75.90 Glucose 132 H Calcium 9.1 Total Bilirubin Conjugated Bilirubin AST ALT Alkaline Phosphatase Troponin I 50 Total Protein Albumin Urine Color Dark Yellow Urine Clarity Sl Cloudy Urine pH 6.0 Ur Specific [place] >= 1.030 H Urine Protein 100 H Urine Ketones Negative Urine Blood Negative Urine Nitrite Negative Urine Bilirubin Negative Urine Urobilinogen 0.2 Ur Leukocyte Esterase Negative Urine RBC Negative Urine WBC Negative Ur Epithelial Cells Few Urine Crystals Negative Urine Bacteria Negative Urine Casts 5-10 Hyaline Urine Mucus Heavy Ur Culture Indicated? No Urine Glucose Negative Urine Opiates Screen Negative Urine Methadone Screen Negative Ur Barbiturates Screen Negative Ur Tricyclics Screen Negative Ur Amphetamines Screen Negative U Benzodiazepines Scrn Negative Urine Cocaine Screen Negative Ur THC Screen Negative 01/21/23 11:25 WBC RBC Hgb Hct MCV MCH MCHC RDW Plt Count MPV Sodium Potassium Chloride Carbon Dioxide Anion Gap BUN Creatinine Est GFR (CKD-EPI 2020) Glucose Calcium Total Bilirubin Conjugated Bilirubin AST ALT Alkaline Phosphatase Troponin I 80 H* Total Protein Albumin Urine Color Urine Clarity Urine pH Ur Specific [place] Urine Protein Urine Ketones Urine Blood Urine Nitrite Urine Bilirubin Urine Urobilinogen Ur Leukocyte Esterase Urine RBC Urine WBC Ur Epithelial Cells Urine Crystals Urine Bacteria Urine Casts Urine Mucus Ur Culture Indicated? Urine Glucose Urine Opiates Screen Urine Methadone Screen Ur Barbiturates Screen Ur Tricyclics Screen Ur Amphetamines Screen U Benzodiazepines Scrn Urine Cocaine Screen Ur THC Screen PFSH All Active Problems (Updated 01/22/23 @ 12:21 by Nadir Mesa MD) Palpitation (Acute) Atypical chest pain (Acute) Diabetes mellitus (Chronic) Elevated troponin (Acute) Elevated lipase (Acute) Abdominal pain (Acute) Hypokalemia (Acute) Internal hemorrhoids (Acute) Medical History Acid reflux Anxiety Blood in stool Cirrhosis of liver portal hypertension/ HX esophageal varices Degeneration of cervical intervertebral disc Depression Diabetes mellitus Elevated liver enzymes External hemorrhoid History of gallstones Hyperlipidemia Hyperplastic colon polyp (~04/21/17) 03/04/20 per PCP this was done in [place]. Hypertension Increased creatine kinase level Insomnia Lower back pain Onychomycosis HU (obstructive sleep apnea) Panic attack Periodic limb movement disorder Positive occult stool blood test Prediabetes Shoulder impingement syndrome Steatosis of liver Thoracic back pain Vitamin D deficiency Surgical History History of colonoscopy History of esophagogastroduodenoscopy (EGD) Hx of cataract removal with insertion of prosthetic lens Social History Smoking/Tobacco Use Status: Never Smoking risk assessment performed?: Yes Alcohol Intake: current Alcohol Intake frequency: a few times a month Drug use: Never Substance use type: does not use Do you feel safe at home: Yes Do you feel safe in your relationship?: Yes Time Spent with Patient Time Spent with Patient: <45 minutes Time was spent: preparing to see the patient(eg.review tests), ordering medications,tests, procedures, indepentently interpreting results, counseling the patient and care coordination
[2023-01-22 12:37] VITALS: PULSE 65
--- NOTE | 2023-01-22 15:10 | PDOC.CMDIS ---
- If Service Date Differs Date of service: 01/22/23 Time of Service: 15:10 LACE Index Scoring Tool - Questions: Length of Stay (in days): 1 Acuity (Admit via E.D.?): Yes Comorbidities: Diabetes w/o Complication, Chronic Pulmonary Disease E.D. Visits: 1 - Answers: Total Score: 8 Risk of Readmission: Low Risk Care Management Discharge Reason for Hospitalization: Elevated troponin, elevated lipase, abdominal pain Discharge Plan: Dimas will return home when ready per MD. He will follow up with his PCP and plan of care as prescribed including outpatient follow up. He will transport via private vehicle with family. Patient/Family Education Needs: Review discharge instructions, discuss Ask Me Three.
== END 2023-01-22 12:55 | disposition home or self-care (01) | DRG 392 ==
LOC: ER 04:33 → MS 05:02
PROVIDERS: Internal Medicine; Admitting Provider Family Medicine; Emergency Provider Student in an Organized Health Care Education/Training Program; PCP Nurse Practitioner Family; Visit Provider Family Medicine
DX: R10.11 Right upper quadrant pain (principal); E87.29 Other acidosis; K76.6 Portal hypertension; I85.10 Secondary esophageal varices without bleeding; R74.8 Abnormal levels of other serum enzymes; K74.60 Unspecified cirrhosis of liver; E11.9 Type 2 diabetes mellitus without complications; E78.5 Hyperlipidemia, unspecified; I10 Essential (primary) hypertension; M54.6 Pain in thoracic spine; R07.89 Other chest pain; E87.6 Hypokalemia; G89.29 Other chronic pain; R74.01 Elevation of levels of liver transaminase levels; K80.20 Calculus of gallbladder without cholecystitis without obstruction; F41.0 Panic disorder [episodic paroxysmal anxiety]; K64.8 Other hemorrhoids; K21.9 Gastro-esophageal reflux disease without esophagitis; F32.A Depression, unspecified; M50.30 Other cervical disc degeneration, unspecified cervical region; G47.00 Insomnia, unspecified; M54.50 Low back pain, unspecified; G47.33 Obstructive sleep apnea (adult) (pediatric); G47.61 Periodic limb movement disorder; E55.9 Vitamin D deficiency, unspecified; Z79.84 Long term (current) use of oral hypoglycemic drugs
CPT/HCPCS: 36415; 36416; 80048; 80053; 80061; 80076; 80307; 82962; 83690; 85027; 87635; 93005; 96365; 96366; 96375; 99285; J1650; 71046; 76705; 81003; 81015; 83036; 83735; 83880; 84484; 85025; 93010; 93306; 99223; 99239; J1885; J3480

== ENCOUNTER 2023-01-25 01:05 | Outpatient (CLI) | payer MEDICAID, SELFPAY ==
--- NOTE | 2023-01-25 08:00 | DI.NM_ITS ---
APPROVED REPORT Exam: Pharmacologic Patient Location: Out-Patient Room/Bed: Stress Nurse: Nicki Rosario RN Ordering Provider:LEONIDES LEV, Contact Number: [phone] BMI: 36.80 Baseline Rhythm: Sinus Bradycardia Indications: Chest pain Medical History Medical History: Palpitations, atypical chest pain, DM, increased troponins, hypokalemia, acid reflux , anxiety, HTN, HLD, HU, prediabetes, obesity Cardiac Medications: Pantoprazole, nitro, metformin, losartan, gabapentin, atorvastatin, aspirin, jar diance Allergies: NKA Cardiac Risk Factors: HTN, HLD, prediabtetes Previous Cardiac Procedures: None Pretest Chest Pain Characteristics: None Exercise History: Sedentary Physical Disabilities: None Stress Test Details Test: Pharmacologic stress testing performed using 0.4 mg of regadenoson per 5 mL given IV over 10 s econds. Reason for pharmacologic stress test: changed from exercise stress test due to inability to reach t arget heart rate. Nuclear Acquisition: Rest Tc-99m/Stress Tc-99m 1 day Rest Isotope: Tc-99m Sestamibi. Dose: 10.0 Date: 01/25/2023 Injection Time: 0915 Stress Isotope: Tc-99m Sestamibi. Dose: 32.0 Date: 01/25/2023 Injection Time: 1128 HR Resting HR Supine: 55 bpm Max Heart Rate (APMHR): 158.963645 bpm Resting HR Standin bpm Target HR (85% APMHR): 134.934409 bpm Max HR Achieved: 79 bpm % of APMHR: 50.00 Recovery HR: 61 bpm BP Resting BP Supine: 122/80 mmHg Resting BP Standin/78 mmHg Max BP: 140/92 mmHg Recovery BP: 128/74 mmHg ECG Resting ECG: Sinus Bradycardia Ectopy: None Stress ECG: Sinus Rhythm ST Change: No significant ST segment changes noted Arrhythmia: None Recovery ECG: Sinus Rhythm Recovery ST Change: No significant ST segment changes noted Recovery Arrhythmia: None Clinical Stress Symptoms: Lightheaded, slight dyspnea Angina Score: None Rate Pressure Product: 28840 Stress ECG Conclusion 1. Electrocardiogram showed voltage for left ventricular hypertrophy 2. Patient underwent testing using regadenoson for pharmacologic stress 3. Peak heart rate achieved was 50% of predicted for age 4. The electrocardiographic portion of the test was nondiagnostic 5. See MPI report Stress Test Summary STAGE HR BP SpO2 Symptoms NOTES Supine 55 122/80 Standing 56 118/78 1 min post Lexiscan injection 60 140/92 Light headed, slight dyspnea 3 min post Lexiscan injection 69 136/78 Symptoms resolving. 6 min post Lexiscan injection 60 128/74 9 min post Lexiscan injection 61 All symptoms resolved Attempted walking lexiscan. Significant artifact created inability to read EKG. Patient transferred t o [facility] with no objections. MPI Conclusion Myocardial perfusion is normal. There is no ischemia or evidence of prior infarction. EF 57% with normal wall motion Radiologist Interpretation Radiologist agrees with Pipeline Operator's Interpretation. Radiologist Interpretation by: Litzy Mckoy MD Interpretation Date/Time: 01/26/2023 16:58:41
[2023-01-25] MEDS: Regadenoson 0.4 MG/5 ML SYR IVP (11:59)
== END 2023-01-25 01:25 ==
LOC: DI 01:05
PROVIDERS: PCP Nurse Practitioner Family; Visit Provider Internal Medicine
DX: R07.89 Other chest pain (principal)
CPT/HCPCS: 78452; 93017; J2785

== ENCOUNTER 2023-02-26 11:09 | Outpatient (CLI) | payer MEDICAID, SELFPAY ==
--- NOTE | 2023-02-26 11:00 | RT.EKG_ITS ---
APPROVED REPORT Exam: Resting ECG Reason for Exam: rollow up NSTEMI Patient Location: O HR:65 bpm ECG Measurements Heart Rate 65 AXIS UT 178 P 59 QRSd 102 QRS 80 QT 404 T 27 QTc 421 Conclusion Sinus rhythm...normal P axis, V-rate 50- 99 Probable left atrial enlargement...P >50mS, <-0.10mV V1 Otherwise normal ECG
== END 2023-02-26 11:10 | disposition home or self-care (01) ==
LOC: DI.CARD 11:09
PROVIDERS: PCP Family Medicine; Visit Provider Internal Medicine Cardiovascular Disease
DX: I21.4 Non-ST elevation (NSTEMI) myocardial infarction (principal)
CPT/HCPCS: 93010

== ENCOUNTER 2023-07-21 02:52 | Outpatient (CLI) | payer MEDICAID, SELFPAY ==
[2023-07-21 12:18] LABS: BUN 13 mg/dL (7-18); CREATININE 0.9 mg/dL (0.70-1.30); Chloride 104 mmol/L (98-107); Estimated GFR 96.57 (mL/min/1.73m2); Glucose 155 mg/dL (74-106); Potassium 3.7 mmol/L (3.5-5.1); Sodium 138 mmol/L (136-145)
[2023-07-21 12:30] LABS: Hemoglobin A1C 6.2 % (<5.7)
== END 2023-07-21 02:53 | disposition home or self-care (01) ==
LOC: LBO 02:52
PROVIDERS: PCP Family Medicine; Referring Provider Emergency Medicine; Visit Provider Emergency Medicine
DX: I10 Essential (primary) hypertension (principal); E11.9 Type 2 diabetes mellitus without complications
CPT/HCPCS: 36415; 80048; 83036

== ENCOUNTER 2024-01-31 14:28 | Outpatient (CLI) | payer MEDICAID, SELFPAY ==
[2024-01-31 13:06] LABS: Abs Immature Grans 0.02 10^3/uL (0.0-0.06); Absolute Basophil Count 0.05 10^3/uL (0.0-0.2); Absolute Eosinophil Count 0.21 10^3/uL (0.0-0.7); Absolute Lymphocyte Count 1.94 10^3/uL (1.2-3.4); Absolute Monocyte Count 0.55 10^3/uL (0.1-0.8); Basophils % 0.9; HCT 38.9 % (40.0-50.0); HGB 12.2 g/dL (13.5-17.5); Immature Grans % 0.4; Lymphocytes % 36.8; MCH 24.4 pg (27.0-33.0); MCHC 31.4 % (32.0-36.0); MCV 78 fL (80-95); MPV 10.3 fL (8.0-11.0); Monocytes % 10.4; Neutrophils % 47.5; Platelet Count 145 10^3/uL (130-400); RBC 5.01 10^6/uL (4.36-5.78); RDW 16.2 % (11.8-14.1); RDW-SD 45.8 fL; Reticulocyte 1.5 % (0.5-2.4); WBC 5.27 10^3/uL (4.4-10.8)
[2024-01-31 13:19] LABS: INR 1.2 (0.9-1.1); Prothrombin Time 11.6 sec (9.1-11.1)
[2024-01-31 13:58] LABS: ALT 54 U/L (16-63); AST 54 U/L (15-37); Alkaline Phosphatase 66 U/L (46-116); Anion Gap 13.6 mmol/L (3-11); BUN 12 mg/dL (7-18); Bilirubin, Total 0.8 mg/dL (0.2-1.0); CO2 23.4 mmol/L (21.0-32.0); CREATININE 1.2 mg/dL (0.70-1.30); Calcium 9.1 mg/dL (8.5-10.1); Chloride 106 mmol/L (98-107); Estimated GFR 67.95 (mL/min/1.73m2); Ferritin 12 ng/mL (26-388); Folate 14.1 ng/mL (8.6-20.0); Glucose 116 mg/dL (74-106); Potassium 4.3 mmol/L (3.5-5.1); Sodium 143 mmol/L (136-145); Total Protein 7.8 g/dL (6.4-8.2); Vitamin B12 404 pg/mL (193-986)
[2024-01-31 14:07] LABS: GGT 81 U/L (15-85)
[2024-01-31 14:13] LABS: C-Reactive Protein < 0.50 mg/dL (<or=0.5)
== END 2024-01-31 14:29 | disposition home or self-care (01) ==
LOC: LBO 14:28
PROVIDERS: PCP Family Medicine; Visit Provider Surgery
DX: I21.4 Non-ST elevation (NSTEMI) myocardial infarction (principal); E11.9 Type 2 diabetes mellitus without complications; K64.8 Other hemorrhoids; R73.03 Prediabetes; E55.9 Vitamin D deficiency, unspecified; E78.5 Hyperlipidemia, unspecified; I10 Essential (primary) hypertension; K76.0 Fatty (change of) liver, not elsewhere classified; Z87.19 Personal history of other diseases of the digestive system; K74.60 Unspecified cirrhosis of liver; K64.4 Residual hemorrhoidal skin tags
CPT/HCPCS: 36415; 80053; 82607; 82728; 82746; 82977; 85025; 85045; 85610; 86140

== ENCOUNTER → 2024-02-08 19:11 | Outpatient (CLI) | payer MEDICAID, SELFPAY ==
--- NOTE | 2024-02-08 15:00 | DI.RAD_ITS ---
Exam(s) XR ELBOW LT COMPLETE EXAM: XR ELBOW LT COMPLETE CLINICAL HISTORY: ? fx, lateral epicondylitis, m77.12. TECHNIQUE: 2D digital imaging was performed. Three views. COMPARISON: No exams were available for comparison FINDINGS: BONES: No acute fracture is present. No bony destructive lesion is seen. JOINTS: The elbow is normally aligned. No joint effusion is seen. Mild periarticular spurring. SOFT TISSUE: Normal. IMPRESSION: Mild degenerative changes. DATA REPOSITORY: RADIATION DOSE DELIVERED:
== END ==
PROVIDERS: PCP Family Medicine; Visit Provider Family Medicine
DX: M77.12 Lateral epicondylitis, left elbow (principal); M19.022 Primary osteoarthritis, left elbow
CPT/HCPCS: 73080

== ENCOUNTER → 2024-02-09 03:32 | Outpatient (CLI) | payer MEDICAID, SELFPAY ==
[2024-02-09] MEDS: Barium Sulfate 2% W/V-Berry Smoothie 450 ML BTL PO ×2 (13:19→13:20)
[2024-02-09] MEDS: Omnipaque 350 MG/ML 100 ML BTL IJ (15:08)
[2024-02-09] MEDS: Normal Saline - Diluent 50 ML VIAL IJ (15:14)
[2024-02-09] MEDS: Normal Saline Flush 10 ML SYR IJ (15:15)
--- NOTE | 2024-02-09 15:16 | DI.CT_ITS ---
Exam(s) CT ABDOMEN PELVIS W EXAM: CT ABDOMEN PELVIS W CLINICAL HISTORY: cirrhosis/varices/abd pain,h/o gallstones,fatty liver. TECHNIQUE: Imaging Protocol: Axial computed tomography images with coronal and sagittal reformatted images were created and reviewed CONTRAST MATERIAL: Intravenous: Omnipaque 350 Contrast volume:100 ml Oral: yes / COMPARISON: US US ABDOMEN LIMITED from 01/21/2023 CT,NM,TMT NM MPI REST STRESS GRP from 01/25/2023 FINDINGS: ABDOMEN and PELVIS: Lung Bases: No acute findings. Liver: Mildly enlarged. Nodular liver surface. No measurable mass. Gallbladder and biliary tract: Cholelithiasis. No evidence of abnormal gallbladder distention or wal l thickening. No biliary dilation. Pancreas: Normal density. No abnormal calcifications or inflammatory process. No evidence of mass. Spleen: Normal. Kidneys: Normal size, contour and axis. No radiodense stones. No obstructive uropathy. No suspicious masses seen. Adrenal glands: No masses seen. Vasculature: Abdominal aorta non-dilated. No significant varices identified. Soft tissues: Unremarkable. Bladder: Mild diffuse wall thickening. No calculi.No focal mass. Bowel: No obstruction. No bowel wall thickening. Appendix normal. Moderate quantity of stool. Peritoneal cavity: No ascites. No focal collection or mesenteric inflammatory response. Bones: Degenerative disc changes at L5-S1. Facet degenerative changes also present at this level. Reproductive organs: Within normal limits. Lymph nodes: Unremarkable. IMPRESSION:: Cirrhotic appearing liver. Cholelithiasis. No evidence of acute cholecystitis. Mild bladder wall thickening could indicate cystitis. Clinical correlation recommended. RADIATION DOSE DELIVERED: 1,604.83mGy.cm Total DLP DATA REPOSITORY: All CT scans at this facility are submitted to the National Radiology Data Registry (NRDR) Dose Index Registry (DIR) with the [employer] (ACR). RADIATION OPTIMIZATION: All CT scans at this facility use at least one of these dose optimization te chniques: automated exposure control; mA and/or kV adjustment per patient size (includes targeted exa ms where dose is matched to clinical indication); or iterative reconstruction.
== END ==
PROVIDERS: PCP Family Medicine; Visit Provider Surgery
DX: I21.4 Non-ST elevation (NSTEMI) myocardial infarction (principal); E11.9 Type 2 diabetes mellitus without complications; K64.8 Other hemorrhoids; R73.03 Prediabetes; E55.9 Vitamin D deficiency, unspecified; E78.5 Hyperlipidemia, unspecified; I10 Essential (primary) hypertension; K76.0 Fatty (change of) liver, not elsewhere classified; Z87.19 Personal history of other diseases of the digestive system; K74.60 Unspecified cirrhosis of liver; K64.4 Residual hemorrhoidal skin tags; G47.33 Obstructive sleep apnea (adult) (pediatric); G47.61 Periodic limb movement disorder; G47.00 Insomnia, unspecified
CPT/HCPCS: 74177; J3490

== ENCOUNTER → 2024-02-29 05:24 | Outpatient (CLI) | payer MEDICAID, SELFPAY ==
--- NOTE | 2024-02-29 07:00 | DI.MRI_ITS ---
Exam(s) MR UPPER EXTREMITY LT WO EXAM: MR UPPER EXTREMITY LT WO CLINICAL HISTORY: Suspect proximal biceps, or brachialis rupture,strain,S46.219a TECHNIQUE: Multiplanar multisequence MRI was performed without intravenous contrast. COMPARISON: CR XR ELBOW LT COMPLETE from 02/08/2024 FINDINGS: Examination limited by patient body habitus and patient motion artifact. BONES/JOINTS: No fracture or contusion pattern. No bone lesions identified. MUSCULOTENDINOUS STRUCTURES: There are findings suspicious for at least a partial tear of the suprasp inatus tendon at its insertion site onto the greater tuberosity. This area is not completely imaged on the examination and an MRI of the shoulder should be obtained for better characterization. No mus cular fatty atrophy. The tendinous insertion of the biceps onto the radial tuberosity is not clearly defined and a partial tear is suspected. There are findings suspicious for partial tear of the commo n extensor tendon. SOFT TISSUES: Unremarkable. OTHER FINDINGS: None. IMPRESSION: 1. Examination limited by patient motion artifact, patient body habitus and field of view. 2. There are findings suspicious for partial tear of the supraspinatus tendon at its insertion site. MRI of the shoulder should be obtained for further evaluation. 3. The biceps tendon insertion site onto the radial tuberosity is poorly defined and at least a parti al tear is suspected. 4. Hyperintense signal seen in the region of the common extensor tendon suspicious for at least a par tial tear at its insertion site. MRI of the elbow is recommended for better evaluation of the biceps tendon and the extensor tendon. DATA REPOSITORY:
== END ==
PROVIDERS: PCP Family Medicine; Visit Provider Family Medicine
DX: S46.212A Strain of muscle, fascia and tendon of other parts of biceps, left arm, initial encounter (principal); M25.552 Pain in left hip; X58.XXXA Exposure to other specified factors, initial encounter
CPT/HCPCS: 73218

== ENCOUNTER → 2024-02-29 05:25 | Outpatient (CLI) | payer MEDICAID, SELFPAY ==
--- NOTE | 2024-02-29 10:55 | DI.RAD_ITS ---
Exam(s) XR HIP LT COMPLETE AP PELVIS EXAM: XR HIP LT COMPLETE AP PELVIS CLINICAL HISTORY: pain in anterior/medial thigh,M79.6512. TECHNIQUE: 2D digital imaging was performed of the left hip. Two views were obtained. AP pelvis an d lateral left hip views were obtained. COMPARISON: No exams were available for comparison FINDINGS: BONES: No acute fracture is present. No bony destructive lesion is seen. JOINTS: No dislocation present. The left hip is well maintained. There are mild degenerative changes seen in the lower lumbar spine. The sacroiliac joints appear unremarkable as is the symphysis pubis . SOFT TISSUE: Mild vascular calcification is present. IMPRESSION: 1. Unremarkable left hip. 2. Mild degenerative changes seen in the visualized lower lumbar spine. DATA REPOSITORY: RADIATION DOSE DELIVERED:
== END ==
PROVIDERS: PCP Family Medicine; Visit Provider Surgery
DX: M79.652 Pain in left thigh (principal); M75.112 Incomplete rotator cuff tear or rupture of left shoulder, not specified as traumatic
CPT/HCPCS: 73502

== ENCOUNTER 2024-03-02 10:09 | Day surgery (SDC) | payer MEDICAID, SELFPAY ==
[2024-03-02] VITALS (13 sets, daily range): BP systolic 119–144; BP diastolic 70–85; PULSE 64–72; RESP 13–18; TEMP 36.4–36.8; O2SAT 94–98; BMI 39.3
--- NOTE | 2024-03-02 10:20 | W.PM.DSUDISC ---
Date of service: 03/02/24 Time of Service: 14:00 Discharge Plan Disposition Patient Disposition: Home Condition: Stable Discharge Details Attending Provider: Mata You Primary Care Provider: Andrew Charlton Home Meds and New Rx's Prescriptions: New oxycodone 5 mg tablet 5 - 10 mg PO Q4H MDD 30 mg PRN (Reason: moderate to severe pain) Qty: 12 0RF naproxen 250 mg tablet 250 - 500 mg PO BID PRNQty: 30 0RF Rx Instructions: take with a meal Continued acetaminophen 500 mg tablet 500 mg PO BID losartan 50 mg tablet 50 mg PO DAILY Rx Instructions: PER [facility] 02/03/23 Jardiance 10 mg tablet 10 mg PO DAILY Qty: 90 3RF hydrocortisone 2.5 % cream 1 applic topical QID PRN (Reason: skin irritation) Qty: 28 3RF famotidine [Pepcid] 40 mg tablet 40 mg PO BID Qty: 60 12RF cholecalciferol (vitamin D3) 50 mcg (2,000 unit) tablet 50 mcg PO DAILY Qty: 90 3RF escitalopram oxalate 10 mg tablet 10 mg PO DAILY Qty: 90 3RF metformin 1,000 mg tablet 1,000 mg PO BID Qty: 180 3RF nadolol 20 mg tablet 20 mg PO DAILY Qty: 90 3RF trazodone 50 mg tablet 50 mg PO HS PRN (Reason: insomnia) Qty: 90 3RF gabapentin 100 mg capsule 100 mg PO TID Qty: 270 3RF cyanocobalamin (vitamin B-12) 2,500 mcg tablet 5,000 mcg PO DAILY Qty: 180 3RF atorvastatin 80 mg tablet 80 mg PO QHS Qty: 90 3RF nitroglycerin 0.4 mg tablet, sublingual 0.4 mg sublingual Q5M PRNQty: 30 0RF Rx Instructions: do not exceed 3 doses per episode Discontinued ibuprofen 600 mg tablet 600 mg PO Q8H PRN (Reason: fever or pain) Qty: 90 3RF Discharge Instructions Additional Instructions: Surgery: Left distal biceps tendon repair Activity: Nonweightbearing left upper extremity. Do not lift or carry anything heavier than a coffee. May use sling for support and comfort as needed for a few weeks. Encourage gently increasing elbow range of motion. Prescriptions: Naproxen 250 mg take 1-2 every 12 hours with a meal as needed for moderate pain Oxycodone 5 mg take 1-2 every 4-6 hours as needed for severe pain You may use [id number] Tylenol (acetaminophen) as needed for mild pain. These pain medications may be taken all at once or in different combinations as needed. Also, recommend Colace (docusate) as a stool softener as surgery and pain medicine cause constipation. You may try [id number] diphenhydramine (Benadryl) 25-50 mg nightly as a sleep aid Dressings: Leave Band-Aid in place until follow-up. May loosen/adjust or remove Chris bandage as needed for swelling. Keep Band-Aid and incision area clean and dry. Follow-up: 10-[address] You You may take off the leg compression stockings this evening at home. You may also leave them on a few days longer if you have a history of leg swelling or edema. Let us know right away if you develop any redness, drainage, fevers, chest pain, or trouble breathing. Do not drink alcohol or drive for at least 24 hours after anesthesia. Please call the office during business hours with any questions or concerns. Discharge Orders Discharge Orders: Discharge Order (Routine); Ordered 03/02/24 Ordered By: Mata You DS: Diagnosis Discharge Diagnosis (1) Rupture of left distal biceps tendon: Status: Acute
--- NOTE | 2024-03-02 10:21 | W.PM.OP ---
Date of service: 03/02/24 Time of Service: 12:00 Operative Note Operative Note DATE OF PROCEDURE: 03/02/24 PRE-OP DIAGNOSIS: Left distal biceps tendon rupture POST-OP DIAGNOSIS: same PROCEDURE: Left distal bicep tendon repair, CPT #53314 SURGEON: Mata You ACUTE CARE CERTIFIED NURSING ASSISTANT: Nadir Nichols ANESTHESIA TYPE: Local By Surgeon, General LMA/ETT and Primary Nerve Block Refer to Anesthesia Record ESTIMATED BLOOD LOSS: 5 TOURNIQUET TIME: 0 COMPLICATIONS: None Patient was transported to: PACU Patient's condition: stable Implants: Arthrex distal biceps button Indications: Please see complete medical record for details. Findings: Complete distal biceps tendon rupture with minimal retraction and early scarring to surrounding structures Procedure Description: In the operating room, general anesthesia was induced. The patient was positioned supine on the operating room table. All bony prominences were well-padded. Preoperative antibiotics were administered. The left upper extremity was prepped and draped in the usual sterile fashion. The correct patient, procedure, and side of the procedure were all verified prior to incision. The radial tuberosity was localized fluoroscopically with the arm in full supination. A longitudinal incision was made and approach taken directly down to the radial tuberosity taking care to protect surrounding muscles and neurovascular structures. Deeply retractors were avoided on the radial side of the proximal radius and the arm position was maintained in supination. Some branching veins had to be coagulated over the injury zone. No artery or nerve issues were encountered. The supinator was retracted radially pronator teres artery nerve ulnarly. The radial tuberosity was covered with distal biceps bursal and tendon scarring, which was carefully dissected off the surrounding structures revealing a complete tear and bald radial tuberosity. The biceps tendon stump was carefully freed from surrounding structures, and the ends were trimmed of fraying and bulbous scar and enlargement to a more tubular and appropriate tissue quality and shape. The tendon and was prepared for repair with a FiberWire fiber loop and then fit through an compressed and 8 mm graft tube. The radial tuberosity was localized and confirmed fluoroscopically with the arm in full supination the guidewire was directed bicortically just barely through the far cortex. The 8 mm low-profile reamer was then Plast over the top and a unicortical fashion completing socket preparation. Reamings were thoroughly irrigated from the wound. Repair suture ends were then loaded on the button and the free ends then preloaded back through the distal tendon for modified tension slide technique. The button was shuttled through the pinhole just barely and flipped on the bone, tension on the repair suture was used to deliver the tendon into the prepared socket. C-arm for fluoroscopy confirmed appropriate button deployment on the far side of the radius down on bone. With the arm in moderate flexion of the bicep tendon was then confirmed to be fully delivered into the socket and secured with knots tied over the free ends compressing the tendon over the repair area. There was excellent fixation strength through range of motion and appropriate tension. Wound was copiously irrigated normal saline. Hemostasis was appropriate. Subcutaneous tissue was closed with 2-0 Monocryl interrupted. Cutaneous tissue closed using 3-0 Monocryl subcuticular running. Skin glue applied over incision followed by Mepilex Band-Aid. An Chris bandage was applied about the elbow. Radial pulse was checked and 1+, consistent with prior. Brisk cap refill throughout the distal extremity. The patient awoke from anesthesia without complication and was transferred to the recovery room in a stable condition.
--- NOTE | 2024-03-02 10:24 | W.ANESPRE ---
General Info Date of Service Date Performed: 03/02/24 Height: 5 ft 7 in Weight: 113.9 kg Body Mass Index (BMI): 39.3 Surgical Procedure: Operation Date: 03/02/24 10:10 Proposed Procedure Side Surgeon p Elbow Bicep Tendon Repair Left Mata You MD Meds Allergies and Home Medications Allergies Allergy/AdvReac Type Severity Reaction Status Date / Time rosuvastatin Allergy Unknown Other (See Uncoded 03/02/24 10:27 Comment) Home Medication Medication Instructions Recorded nitroglycerin 0.4 mg sublingual 0.4 mg sublingual Q5M PRN #30 tabs 01/22/23 tablet acetaminophen 500 mg tablet 500 mg PO BID Headache pain 02/04/23 cholecalciferol (vitamin D3) 50 50 mcg PO DAILY #90 tabs 02/16/23 mcg (2,000 unit) tablet escitalopram oxalate 10 mg tablet 10 mg PO DAILY #90 tabs 02/16/23 metformin 1,000 mg tablet 1,000 mg PO BID #180 tabs 03/18/23 nadolol 20 mg tablet 20 mg PO DAILY #90 tabs 03/18/23 empagliflozin 10 mg tablet 10 mg PO DAILY #90 tabs 08/02/23 (Jardiance) trazodone 50 mg tablet 50 mg PO HS PRN insomnia #90 tabs 12/27/23 gabapentin 100 mg capsule 100 mg PO TID #270 caps 12/30/23 hydrocortisone 2.5 % topical cream 1 applic topical QID PRN skin 01/31/24 irritation #28 grams cyanocobalamin (vitamin B-12) 5,000 mcg (2 x 2,500 mcg) PO DAILY 02/10/24 2,500 mcg tablet #180 tabs famotidine 40 mg tablet (Pepcid) 40 mg PO BID #60 tabs 02/18/24 atorvastatin 80 mg tablet 80 mg PO QHS #90 tabs 02/21/24 losartan 50 mg tablet 50 mg PO DAILY 03/01/24 Current Visit Medications: Current Medications Generic Name Dose Route Start Last Admin Trade Name Freq PRN Reason Stop Dose Admin Acetaminophen 1,000 mg 03/02/24 10:19 Acetaminophen 500 Mg Tab PO 04/01/24 10:18 Q6H PRN PRN Ringer's Solution 1,000 mls @ 30 mls/hr 05/09/24 06:00 IV 03/02/24 23:59 INFUSION ANTHONY Tranexamic Acid/Sodium Chloride 1,000 mg in 100 mls @ 600 mls/hr 03/02/24 06:00 IVPB 03/02/24 23:59 PREOP ANTHONY Cefazolin Sodium 3,000 mg/ 100 mls @ 200 mls/hr 03/02/24 06:00 Sodium Chloride IVPB 03/02/24 23:59 PREOP ANTHONY IV Miscellaneous Supplies 1 each 03/02/24 06:00 Iv Access IV 03/02/24 23:59 DIRECTED ANTHONY Oxycodone HCl 0 mg 03/02/24 10:19 Oxycodone 5 Mg Tab PO 04/01/24 10:18 Q3H PRN PRN Pain Sodium Chloride 0 ml 03/02/24 06:00 Normal Saline Flush 10 Ml Syr IV 03/02/24 23:59 PRN PRN Sodium Chloride 0 ml 03/02/24 06:00 Normal Saline 10 Ml Vial IJ 03/02/24 23:59 DIRECTED PRN Sterile Water 0 ml 03/02/24 06:00 Water,Injection,Sterile 10 Ml Vial IJ 03/02/24 23:59 DIRECTED PRN PFSH Active Problems Active Problems: Problem Status Onset Code Rupture of left distal biceps tendon ~02/09/24 S46.212A Pain in left thigh M79.652 Chronic erosive gastritis K29.40 Esophageal varices determined by endoscopy I85.00 Biceps tendon rupture S46.219A Lateral epicondylitis, left elbow M77.12 Rectal bleeding K62.5 Anemia D64.9 Upper extremity weakness R29.898 Meralgia paresthetica of left side G57.12 Ceruminosis H61.20 Diabetes mellitus E11.9 Internal hemorrhoids K64.8 Nuclear sclerotic cataract of right eye H25.11 Cortical cataract of right eye H26.9 Cortical cataract of left eye H26.9 Nuclear sclerotic cataract of left eye H25.12 Atypical chest pain R07.89 Palpitation R00.2 NSTEMI (non-ST elevated myocardial infarction) I21.4 Whiplash injury S13.4XXA Cervical migraine syndrome G43.809 Cervicogenic headache G44.86 Medical History Medical History Acid reflux Cirrhosis of liver portal hypertension/ HX esophageal varices Hyperlipidemia Depression Degeneration of cervical intervertebral disc Vitamin D deficiency Elevated liver enzymes Steatosis of liver History of gallstones Thoracic back pain Onychomycosis Lower back pain Increased creatine kinase level HU (obstructive sleep apnea) Periodic limb movement disorder Shoulder impingement syndrome Insomnia Blood in stool Panic attack Positive occult stool blood test External hemorrhoid Hyperplastic colon polyp (~04/21/17) 03/04/20 per PCP this was done in [place]. Anxiety Prediabetes Hypertension Surgical History Surgical History Hx of cataract removal with insertion of prosthetic lens History of esophagogastroduodenoscopy (EGD) History of colonoscopy Tobacco Smoking/Tobacco Use Status: Never Passive smoking exposure: No Alcohol Alcohol Intake: current Alcohol intake frequency: a few times a month Details: Did not answer questions regarding #of drinks on a typical day, etc Substance Use Substance use: Never Substance use type: does not use Vital Signs and Lab Results Vital Signs Most Recent Vital Signs in EMR: Most Recent Vital Signs Temp Pulse Resp BP Pulse Ox 36.6 C 64 16 142/85 H 96 03/02/24 10:21 03/02/24 10:21 03/02/24 10:21 03/02/24 10:21 03/02/24 10:21 Lab Results Blood Type / Crossmatch: No Data to Display Complete Blood Count: No Data to Display Complete Metabolic Panel: No Data to Display Liver Function Panel: No Data to Display Coagulation Panel: No Data to Display Cardiac Panel: No Data to Display Arterial Blood Gas: No Data to Display Venous Blood Gas: No Data to Display Pancreas Panel: No Data to Display Thyroid Panel: No Data to Display Infectious Disease: No Data to Display Blood Cultures: No Data to Display Toxicology Panel: No Data to Display Imaging and Studies Imaging and Studies Study information below may be from another EMR and interpreted by another provider. Please see original notes in EMR for more complete details. EKG Summary: 03/16: sinus. Stress Test Summary: 02/14: voltage criteria for LVH, nondiagnositc ECG. 50% predicted HR. LVEF 57 %, no ischemia or prior infarction. Echocardiogram Summary: 01/14: LVEF 65%, normal wall motion. trace TR/MR. Anesthesia Assessment and Plan Anesthesia History Personal History: No History of Anesthesia Complications Family History: No Family History of Anesthesia Complications Exercise Tolerance Exercise Tolerance: Metabolic Equivalents<4 Cardiac & Pulmonary Exam Cardiac Exam: Normal S1/S2 Heart Sounds Pulmonary Exam: Clear Bilateral Breath Sounds Implantable Cardiac Device Does patient have a Pacemaker or an ICD?: No Airway Exam Known Difficult Airway: No Mallampati Class: 2 Mouth Opening: Normal (> 3cm) Thyromental Distance: Greater than 3 cm Neck Range of Motion: Full ROM Neck Circumference: Thick Teeth Condition: Edentulous ASA Classification ASA Score: ASA 3 Emergency Case?: No NPO Status NPO Status: NPO Clears >2 hours, Solids >8 hours Anesthesia Plan Resuscitation Status: Full Code Anesthesia Technique: General Anesthesia Airway Planned: Endotracheal Tube Pain Management: Surgeon and patient request nerve block Monitors Used: Standard Monitors Preoperative Comments:: 63 yo male for bicep tendon repair. Sig PMHx: NSTEMI (likely demand), HU (no CPAP), DM2 (101 today), GERD/gastritis (denies frequent reflux), Portal HTN/varices, cervical DJD (denies numbness with movement), anxiety.
[2024-03-02] MEDS: Lactated Ringers 1,000 ML 30 ML IV (10:43)
[2024-03-02] MEDS: ceFAZolin 3,000 MG in Normal Saline 100 ML 200 MG IVPB (11:22)
[2024-03-02] MEDS: TRANEXAMIC ACID/SOD. CHL. 1,000 MG/100 ML BAG 600 MG IVPB (11:32)
--- NOTE | 2024-03-02 11:35 | W.ANESNERVE ---
Nerve Block Single Injection Procedure Date and Time Date Performed: 03/02/24 Procedure Start: 11:07 Location Where Procedure Performed Procedure Location: Day Surgery Unit Reason Performed: Postoperative Analgesia Requesting Provider: Mata You Timeout Performed Timeout Performed: Yes Monitoring Used ECG, Blood Pressure and SpO2 Sterility Sterility: Hand Hygiene, Surgical Cap and Surgical Mask Sedation Given During Procedure Sedation Given (Indicate Dose Given): Versed IV Dose:: 2 mg Patient Mental Status Patient Mental Status: Sedate with meaningful communication Nerve Block 1st Nerve Block: Laterality: Left Block Type: Axillary Ultrasound Image Saved?: Yes Needle / Catheter Used: 100mm SonoPlex II Local Anesthetic Bolus (Indicate Dose Given): Lidocaine used for local infiltration of skin, Bupivacaine 0.5% Dose:: 24 mL and Exparel Dose:: 10 mL Additives (Indicate Dose Given): None Ultrasound: Sterile probe cover and gel used Nerve Stimulator: Supplement to Ultrasound use and No twitch or parasthesia noted < 0.5 mA Paresthesia: None Procedure Tolerated: No Complications Procedure Outcome: Successful Performed By: Billy Yuan
--- NOTE | 2024-03-02 13:00 | DI.RAD_ITS ---
Exam(s) XR ELBOW LT LIMITED EXAM: XR ELBOW LT LIMITED CLINICAL HISTORY: Rupture of left distal biceps tendon. TECHNIQUE: 2D and realtime digital imaging was performed. COMPARISON: No exams were available for comparison FINDINGS: Fluoroscopy was provided in the OR during repair of biceps tendon Please see procedure note for details. Fluoro time: 17.7seconds RADIATION DOSE DELIVERED: yann Wilkins=0.45 mGy
[2024-03-02] MEDS: Bupivacaine 0.25% Pres-Free W/EPI 30 ML VIAL (13:02)
--- NOTE | 2024-03-02 13:56 | W.ANESPOSTOP ---
Postoperative Evaluation Date, Time and Location Date Performed: 03/02/24 Time Performed: 13:56 Patient Location: Day Surgery Unit Vital Signs Most Recent Imported Vital Signs: Most Recent Vital Signs Temp Pulse Resp BP Pulse Ox 36.4 C L 69 16 142/85 H 94 03/02/24 13:47 03/02/24 13:47 03/02/24 13:47 03/02/24 13:47 03/02/24 13:47 Pain Score Most Recent Pain Score: Most Recent Pain Score Pain Level 5 03/02/24 11:01 Assessment Mental Status: Arousable with meaningful communication Airway and Respiratory Function: Patent airway with normal (patient baseline) respiratory exam Cardiovascular Function: Hemodynamically Stable Hydration Status: Adequately Hydrated Nausea & Vomiting: No Nausea or Vomiting Pain: Pain is tolerable per patient Peripheral Nerve Block: Regional nerve block not resolved at time of post operative discharge (decreased sensation, but able to move fingers well. )
[2024-03-02] MEDS: Acetaminophen 500 MG TAB 1000 MG PO (14:52)
== END 2024-03-02 15:30 | disposition home or self-care (01) ==
PROVIDERS: PCP Family Medicine; Visit Provider Student in an Organized Health Care Education/Training Program
PROC: (CPT 24341; principal; 2024-03-02 10:00)
DX: S46.212A Strain of muscle, fascia and tendon of other parts of biceps, left arm, initial encounter (principal); E11.9 Type 2 diabetes mellitus without complications; K29.40 Chronic atrophic gastritis without bleeding; F41.9 Anxiety disorder, unspecified; Z86.79 Personal history of other diseases of the circulatory system; X58.XXXA Exposure to other specified factors, initial encounter
CPT/HCPCS: 24342; 76000; 76942; 73070; C9290; J0665; J0690; J1100; J2250; J2405; J2704

== ENCOUNTER 2024-04-25 06:10 | Day surgery (SDC) | payer MEDICAID, SELFPAY ==
[2024-04-25 06:28] VITALS: BP 120/79; PULSE 65; RESP 16; TEMP 36.1; O2SAT 96
[2024-04-25] MEDS: Lactated Ringers 1,000 ML 80 ML IV (06:57)
--- NOTE | 2024-04-25 07:00 | W.ANESPRE ---
General Info Date of Service Date Performed: 04/25/24 Height: 5 ft 7 in Weight: 111.4 kg Body Mass Index (BMI): 38.5 Surgical Procedure: Operation Date: 04/25/24 07:40 Proposed Procedure Side Surgeon p Exam Under Anesthesia Arlette Mackenzie DO s Possible Internal Hemorrhoid Banding and External Hemorrhoidectomy Arlette Mackenzie DO Actual Procedure Side Surgeon p Exam Under Anesthesia Arlette Mackenzie, s Possible Internal Hemorrhoid Banding and External Hemorrhoidectomy Arlette Mackenzie, Pre-Op Diagnosis Post-Op Diagnosis external and internal hemorrhoids Meds Allergies and Home Medications Allergies Allergy/AdvReac Type Severity Reaction Status Date / Time rosuvastatin Allergy Unknown Other (See Uncoded 04/25/24 06:32 Comment) Home Medication Medication Instructions Recorded nitroglycerin 0.4 mg sublingual 0.4 mg sublingual Q5M PRN #30 tabs 01/22/23 tablet acetaminophen 500 mg tablet 500 mg PO BID Headache pain 02/04/23 cholecalciferol (vitamin D3) 50 50 mcg PO DAILY #90 tabs 02/16/23 mcg (2,000 unit) tablet metformin 1,000 mg tablet 1,000 mg PO BID #180 tabs 03/18/23 nadolol 20 mg tablet 20 mg PO DAILY #90 tabs 03/18/23 empagliflozin 10 mg tablet 10 mg PO DAILY #90 tabs 08/02/23 (Jardiance) trazodone 50 mg tablet 50 mg PO HS PRN insomnia #90 tabs 12/27/23 hydrocortisone 2.5 % topical cream 1 applic topical QID PRN skin 01/31/24 irritation #28 grams cyanocobalamin (vitamin B-12) 5,000 mcg (2 x 2,500 mcg) PO DAILY 02/10/24 2,500 mcg tablet #180 tabs famotidine 40 mg tablet (Pepcid) 40 mg PO BID #60 tabs 02/18/24 atorvastatin 80 mg tablet 80 mg PO QHS #90 tabs 02/21/24 losartan 50 mg tablet 50 mg PO DAILY 03/01/24 naproxen 250 mg tablet 250 - 500 mg (1 - 2 x 250 mg) PO 03/02/24 BID PRN #30 tabs escitalopram oxalate 10 mg tablet 10 mg PO DAILY #90 tabs 04/04/24 gabapentin 100 mg capsule 100 mg PO BID 04/24/24 Current Visit Medications: Current Medications Generic Name Dose Route Start Last Admin Trade Name Freq PRN Reason Stop Dose Admin Hyoscyamine Sulfate 0.125 mg 04/25/24 01:50 Hyoscyamine 0.125 Mg Sl/Oral/Chew SL 05/25/24 01:49 DIRECTED PRN Ringer's Solution 1,000 mls @ 80 mls/hr 04/25/24 06:00 04/25/24 06:57 IV 05/24/24 23:59 80 mls/hr INFUSION ANTHONY Administration IV Miscellaneous Supplies 1 each 04/25/24 06:00 Iv Access IV 05/24/24 23:59 DIRECTED ANTHONY Ondansetron HCl 4 mg 04/25/24 01:02 Ondansetron 4 Mg/2 Ml Vial IVP 05/25/24 01:01 Q4H PRN PRN Nausea / Vomiting Sodium Chloride 0 ml 04/25/24 06:00 Normal Saline Flush 10 Ml Syr IV 05/24/24 23:59 PRN PRN Sodium Chloride 0 ml 04/25/24 06:00 Normal Saline 10 Ml Vial IJ 05/24/24 23:59 DIRECTED PRN Sterile Water 0 ml 04/25/24 06:00 Water,Injection,Sterile 10 Ml Vial IJ 05/24/24 23:59 DIRECTED PRN PFSH Active Problems Active Problems: Problem Status Onset Code Perianal dermatitis L30.9 Trigger thumb of left hand M65.312 Trigger finger, left middle finger M65.332 Left rotator cuff tear M75.102 Rupture of left distal biceps tendon ~02/09/24 S46.212A Pain in left thigh M79.652 Chronic erosive gastritis K29.40 Esophageal varices determined by endoscopy I85.00 Lateral epicondylitis, left elbow M77.12 Rectal bleeding K62.5 Anemia D64.9 Upper extremity weakness R29.898 Meralgia paresthetica of left side G57.12 Ceruminosis H61.20 Diabetes mellitus E11.9 Internal hemorrhoids K64.8 Nuclear sclerotic cataract of right eye H25.11 Cortical cataract of right eye H26.9 Cortical cataract of left eye H26.9 Nuclear sclerotic cataract of left eye H25.12 Atypical chest pain R07.89 Palpitation R00.2 NSTEMI (non-ST elevated myocardial infarction) I21.4 Whiplash injury S13.4XXA Cervical migraine syndrome G43.809 Cervicogenic headache G44.86 Medical History Medical History Acid reflux Cirrhosis of liver portal hypertension/ HX esophageal varices Hyperlipidemia Depression Degeneration of cervical intervertebral disc Vitamin D deficiency Elevated liver enzymes Steatosis of liver History of gallstones Thoracic back pain Onychomycosis Lower back pain Increased creatine kinase level HU (obstructive sleep apnea) Periodic limb movement disorder Shoulder impingement syndrome Insomnia Blood in stool Panic attack Positive occult stool blood test External hemorrhoid Hyperplastic colon polyp (~04/21/17) 03/04/20 per PCP this was done in [place]. Anxiety Prediabetes Hypertension Surgical History Surgical History History of surgery on arm left Hx of cataract removal with insertion of prosthetic lens History of esophagogastroduodenoscopy (EGD) History of colonoscopy Tobacco Smoking/Tobacco Use Status: Never Passive smoking exposure: No Alcohol Alcohol Intake: former Details: Did not answer questions regarding #of drinks on a typical day, etc Substance Use Substance use: Never Substance use type: does not use Vital Signs and Lab Results Vital Signs Most Recent Vital Signs in EMR: Most Recent Vital Signs Temp Pulse Resp BP Pulse Ox 36.1 C L 65 16 120/79 96 04/25/24 06:28 04/25/24 06:28 04/25/24 06:28 04/25/24 06:28 04/25/24 06:28 Point of Care Results Point of Care Results: Finger Stick Blood Glucose 124 04/25/24 06:44 Lab Results Blood Type / Crossmatch: No Data to Display Complete Blood Count: No Data to Display Complete Metabolic Panel: No Data to Display Liver Function Panel: No Data to Display Coagulation Panel: No Data to Display Cardiac Panel: No Data to Display Arterial Blood Gas: No Data to Display Venous Blood Gas: No Data to Display Pancreas Panel: No Data to Display Thyroid Panel: No Data to Display Infectious Disease: No Data to Display Blood Cultures: No Data to Display Toxicology Panel: No Data to Display Imaging and Studies Imaging and Studies Study information below may be from another EMR and interpreted by another provider. Please see original notes in EMR for more complete details. EKG Summary: 03/16: sinus. Stress Test Summary: 02/14: voltage criteria for LVH, nondiagnositc ECG. 50% predicted HR. LVEF 57 %, no ischemia or prior infarction. Echocardiogram Summary: 01/14: LVEF 65%, normal wall motion. trace TR/MR. Anesthesia Assessment and Plan Anesthesia History Personal History: No History of Anesthesia Complications Family History: No Family History of Anesthesia Complications Exercise Tolerance Exercise Tolerance: Metabolic Equivalents<4 Cardiac & Pulmonary Exam Cardiac Exam: Normal S1/S2 Heart Sounds Pulmonary Exam: Clear Bilateral Breath Sounds Implantable Cardiac Device Does patient have a Pacemaker or an ICD?: No Airway Exam Known Difficult Airway: No Mallampati Class: 2 Mouth Opening: Normal (> 3cm) Thyromental Distance: Greater than 3 cm Neck Range of Motion: Full ROM Neck Circumference: Thick Teeth Condition: Edentulous ASA Classification ASA Score: ASA 3 Emergency Case?: No NPO Status NPO Status: NPO Clears >2 hours, Solids >8 hours Anesthesia Plan Resuscitation Status: Full Code Anesthesia Technique: Spinal Anesthesia Airway Planned: Natural Airway Monitors Used: Standard Monitors Preoperative Comments:: Discussed GA vs. SAB. Patient has elected for SAB with GA/ETT backup.
[2024-04-25 07:04] VITALS: BMI 38.5
[2024-04-25] MEDS: Dibucaine 1% 28 GM TUBE TP (08:44)
--- NOTE | 2024-04-25 09:00 | HEM_PTH ---
PATIENT: Dimas Gao LOC: [facility] U#:[id number] AGE/SX: 63/M ROOM: RE04/25/[address]: Arlette Mackenzie : 1960 BED: DIS: 04/25/2024 SPEC #: [id number] RECD: 04/25/24 12:58 STATUS: DONNA REQ #: [id number] ARTURO: 04/25/24 09:[address]: Arlette Mackenzie DEPT: Surgical Specimen RECD BY: Linda Ferrer ENTERED: 04/25/24 12:59 SP TYPE: Hem OTHR DR: Andrew Charlton DO Tissues: 1 - HEMORRHOIDS Procedures: GROSS AND MICRO LEVEL 3 Comments: [id number]
[2024-04-25] MEDS: Bupivacaine LIPOSOME/PF 133 MG/10 ML VIAL IJ (09:07)
[2024-04-25 09:18] VITALS: BP 122/78; PULSE 60; RESP 16; TEMP 36.4; O2SAT 96
--- NOTE | 2024-04-25 09:28 | ROE_ITS ---
Date of service: 04/25/24 Time of Service: 09:28 Operative Note Operative Note DATE OF PROCEDURE: 04/25/24 PRE-OP DIAGNOSIS: Internal and external hemorrhoids POST-OP DIAGNOSIS: same PROCEDURE: left lateral And right anterior hemorrhoid rubber band of the right posterior internal hemorrhoid. This was not associated with an external hemorrhoid. SURGEON: Arlette Mackenzie ANESTHESIA TYPE: Local By Surgeon and Spinal Refer to Anesthesia Record ESTIMATED BLOOD LOSS: 10 PATHOLOGY: other COMPLICATIONS: None Patient was transported to: same day Patient's condition: stable Procedure Description: Hemorrhoidectomy Pt is here today for excision of I/E hemorrhoids That has been causing him pain/bleeding/itching/feeling unclean Informed consent is obtained explaining risks and benefits of the procedure, including but not limited to:? bleeding, infection, pneumonia, blood clots, damage to sphincters resulting in stenosis or loss of control, anesthesia, recurrence, and other unforetold complications. The pt is brought to the operative suite.? Anesthesia is administered per the dept. of anesthesia.? he is than placed in the prone position w/ all bony surfaces padded. The table is jacinta-knifed.? The anal/rectal region is prepped and draped in the usual sterile fashion using a Betadine scrub solution.? Timeout and fire safety are performed. .30cc of .25% Marcaine w/ epi is used for local and for a pudendal block, pre procedurally. ??The wound is instilled w/ 10cc Experel at completion of the case. Procedure:? A Christian anal retractor was inserted to aid in visualization of the hemorrhoids to be operated upon.? Each hemorrhoid was grasped at the mucocuteneous junction with an Allis forceps and retracted.? A stay suture of 4- 0 Prolene was placed distal to the end of the incision.? The skin was incised at the base of the hemorrhoid with a scissors as a V-shape incision. The incision was extended into the mucosa either side of the hemorrhoid, raising it off the muscles of the internal sphincter. The dissection is continued just beyond the dentate line.? All clot was removed prior to closing the defect.? The Defect was then closed with 4-0 Vicryl in a running fashion.? This was repeated for all 2columns. the right posterior hemorrhoidal complex did not have a any significant exterior hemorrhoid. The anterior hemorrhoid was banded.? The rectum was irrigated.? There is no bleeding noted.? Dibucaine impregnated Gelfoam was inserted into the rectum and sterile dressing is applied.? Patient tolerated procedure well without complication and transferred to recovery room in stable condition.
--- NOTE | 2024-04-25 09:30 | PDOC.DSDIS_ITS ---
Date of service: 04/25/24 Time of Service: 09:30 Discharge Plan Disposition Patient Disposition: Home Condition: Good Discharge Details Reason For Visit: hemorrhoid surgery Attending Provider: Arlette Mackenzie Primary Care Provider: Andrew Charlton Home Meds and New Rx's Prescriptions: New dibucaine [Hemorrhoidal-Analgesic] 1 % ointment 1 applic topical QID PRNQty: 30 3RF tramadol 100 mg tablet 100 mg PO Q6H PRNQty: 14 0RF docusate sodium [Colace] 100 mg capsule 100 mg PO BID Qty: 60 1RF Continued acetaminophen 500 mg tablet 500 mg PO BID losartan 50 mg tablet 50 mg PO DAILY Rx Instructions: PER [facility] 02/03/23 Jardiance 10 mg tablet 10 mg PO DAILY Qty: 90 3RF hydrocortisone 2.5 % cream 1 applic topical QID PRN (Reason: skin irritation) Qty: 28 3RF famotidine [Pepcid] 40 mg tablet 40 mg PO BID Qty: 60 12RF cholecalciferol (vitamin D3) 50 mcg (2,000 unit) tablet 50 mcg PO DAILY Qty: 90 3RF metformin 1,000 mg tablet 1,000 mg PO BID Qty: 180 3RF nadolol 20 mg tablet 20 mg PO DAILY Qty: 90 3RF trazodone 50 mg tablet 50 mg PO HS PRN (Reason: insomnia) Qty: 90 3RF cyanocobalamin (vitamin B-12) 2,500 mcg tablet 5,000 mcg PO DAILY Qty: 180 3RF atorvastatin 80 mg tablet 80 mg PO QHS Qty: 90 3RF escitalopram oxalate 10 mg tablet 10 mg PO DAILY Qty: 90 3RF nitroglycerin 0.4 mg tablet, sublingual 0.4 mg sublingual Q5M PRNQty: 30 0RF Rx Instructions: do not exceed 3 doses per episode naproxen 250 mg tablet 250 - 500 mg PO BID PRNQty: 30 0RF Rx Instructions: take with a meal gabapentin 100 mg capsule 100 mg PO BID Discharge Instructions Additional Instructions: Home Care Instructions after Rectal Surgery Pain control:? Ibuprofen 600mg 6hrs (take w/ food. Do not take on an empty stomach) and Tylenol 1000mg by mouth (ibuprofen 400-600mg) every 8 hours.? Do not take if you have ulcers or sensitivity to aspirin.? Do not take Tylenol if you have hepatitis or liver failure. Alternate the Tylenol and ibuprofen.? Take pain meds continuously for the first 72hrs.? After 72hrs, you can take as needed if you are having pain.? Dibucaine topical ointment as needed for pain How to prevent constipation: The first bowel movement after surgery will be painful. Do not let yourself get constipated. Stay on a stool softener for the first two weeks after surgery. ?It is recommended that you use a fiber supplement (Metamucil, Citrucel) daily (1 tablespoon in 8 oz of water). If you do not have a bowel movement daily, use Milk of Magnesia or Miralax.You may have bleeding or drainage after rectal surgery; especially when you move your bowels. Use a sanitary napkin to collect the discharge. If you are passing large clots or having to change the pad more than every 4 hours, call the clinic or go to the ER. You do have rectal packin gin place. This will either dissolve or pass the first time you go to the bathroom. You may experience spasms in the rectal muscles. This is normal after surgery and last for about two weeks. They can become more intense with bowel movements. The best remedy is to soak in a bathtub of plain warm water- no Epsom salts, essential oil or soap.? It takes about 10 minutes further the spasm to stop.? You may want to do this after BM as well. It is ok to shower. Avoid soap on the surgical area. Use a pillow to sit on. Follow a mild bland diet. Avoid alcohol, spicy food, citrus, and tomatoes. Avoid strenuous activity (running, jogging, and power walking, swimming, weight lifting) for two weeks. No lifting over 20 pounds for 2 weeks. Activity:: see above Diet:: Carb Counting Discharge Orders Discharge Orders: Discharge Order (Routine); Ordered 04/25/24 Ordered By: Arlette Mackenzie DS: Diagnosis Discharge Diagnosis (1) NSTEMI (non-ST elevated myocardial infarction): Status: Acute (2) Diabetes mellitus: Status: Chronic (3) Esophageal varices determined by endoscopy: Status: Acute (4) Chronic erosive gastritis: Status: Acute (5) Internal hemorrhoids: Status: Acute Asessment and Plan: The patient is doing well post-op from their [] surgery.? They are having no nausea or vomiting. They are tolerating liquids and a snack. The pt is not having any chest pain or SOB.? Their pain is adequately controlled. They have been able to urinate.? ?HEENT:? no eye pain/drainage/redness/swelling. Mild sore throat ?Cardio- NSR, no chest pain, BP stable- see VS record ?Pulm: no sob or productive cough. No hemoptysis ?Incision- dressing is c/d/i w/ no excessive bleeding or drainage ?I discussed with the patient the findings at the time of surgery and the patient?s progress. ?We reviewed expectations at home; what the patient could expect for recovery time, and in the post-operative period.? We discussed the importance of walking to avoid blood clots and pneumonia.? We discussed and reviewed the patient's post-operative wound care and dressing needs.?? We reviewed their step-monzon pain management plan, Rx called to the pharmacy of their choice.? We reviewed activity and limitations-see discharge instructions. We reviewed warning signs, and when to seek medical attention- see d/c instructions.?? Patient was given a postoperative follow-up appointment. Patient verbalized understanding of their postoperative instructions, how do to take care of themselves and their incision, and the pain management plan. Please see discharge instructions.? (6) Rectal bleeding: Status: Acute (7) Anemia: Status: Chronic (8) Steatosis of liver: (9) Cirrhosis of liver: (10) Hypertension: (11) Hyperlipidemia: (12) Prediabetes:
[2024-04-25] MEDS: Gabapentin 300 MG CAP 600 MG PO (09:41)
[2024-04-25] MEDS: Ketorolac 15 MG/ML VIAL IVP (09:50)
[2024-04-25 09:57] VITALS: BP 127/78; PULSE 57; RESP 16; TEMP 36.2; O2SAT 95
--- NOTE | 2024-04-25 10:46 | W.ANESPOSTOP ---
Postoperative Evaluation Date, Time and Location Date Performed: 04/25/24 Time Performed: 10:46 Patient Location: Day Surgery Unit Vital Signs Most Recent Imported Vital Signs: Most Recent Vital Signs Temp Pulse Resp BP Pulse Ox 36.2 C L 57 L 16 127/78 95 04/25/24 09:57 04/25/24 09:57 04/25/24 09:57 04/25/24 09:57 04/25/24 09:57 Pain Score Most Recent Pain Score: Most Recent Pain Score Pain Level 0 04/25/24 09:57 Assessment Mental Status: Awake (Alert & Oriented to Patient Baseline) Airway and Respiratory Function: Patent airway with normal (patient baseline) respiratory exam Cardiovascular Function: Hemodynamically Stable Hydration Status: Adequately Hydrated Nausea & Vomiting: No Nausea or Vomiting Pain: Pt. Denies Any Pain Peripheral Nerve Block: Patient did not receive a nerve block
== END 2024-04-25 10:48 | disposition home or self-care (01) ==
PROVIDERS: PCP Family Medicine; Visit Provider Surgery
PROC: (CPT 46221; principal; 2024-04-25 07:30)
PROC: (CPT 46221; 2024-04-25 07:30)
DX: K64.8 Other hemorrhoids; K64.4 Residual hemorrhoidal skin tags; K21.9 Gastro-esophageal reflux disease without esophagitis; K74.60 Unspecified cirrhosis of liver; G47.33 Obstructive sleep apnea (adult) (pediatric); I25.2 Old myocardial infarction; Z79.84 Long term (current) use of oral hypoglycemic drugs
CPT/HCPCS: 46221; 88304; C9290; J0131; J1885; J2001; J2250; J2371; J2401; J2405; J2704

== ENCOUNTER 2024-11-10 14:23 | Outpatient (CLI) | payer MEDICAID, SELFPAY ==
--- NOTE | 2024-11-10 10:45 | DI.RAD_ITS ---
Exam(s) XR LUMBAR SPINE COMPLETE EXAM: XR LUMBAR SPINE COMPLETE CLINICAL HISTORY: Evaluate for a L sided foraminal stenosis Meralgia Paresthetica G57.12. TECHNIQUE: 2D digital imaging was performed. Five views. COMPARISON: No exams were available for comparison FINDINGS: BONES: No fracture or destructive lesion. Vertebral body heights are maintained. Mild facet hypert rophy identified . DISKS: Moderate narrowing the L5-S1 disc space. Endplate osteophytes. The remaining intervertebr al disc spaces are maintained. ALIGNMENT: Lumbar spinal alignment is within normal limits. SOFT TISSUE: Normal. IMPRESSION: Degenerative disc changes at L5-S1. DATA REPOSITORY: RADIATION DOSE DELIVERED:
--- OUTSIDE RECORDS SUMMARY | 2024-11-10 14:25 | XMS_ITS | Clinical Summary ---
Author Organization [facility] Address [address] [place] [address] Care Team Providers Care Radiology Supervisor Name Role Phone DiomedesNetta garza El STORAGE MANAGEMENT CONSULTANT Primary Care Provider [phone] Social History Tobacco Use Types Packs/Day Years Used Date Smoking Tobacco: Never Assessed Interpersonal Safety Answer Date Record ed Physically Hurt Never 10/10/2020 Verbally Threaten Not on file 10/10/2020 Sex and Gender Information Value Date Recorded Sex Assigned at Not on file Legal Sex Male 10:27 EST Gender Identity Not on file Sexual Orientation Not on file Plan of Treatment Health Maintenance Due Date Last Done Comments Hepatitis C Screen 1960 COVID-19 Vaccine (2023-25 season) 2024 RSV Immunization ( o r 60+ Years) (1 - 1-dose 75+ series) 2035 Insurance MEDICAID [facility] Care Teams Radiology Supervisor Relationship Specialty Start Date End Date Netta Mccollum, STORAGE MANAGEMENT CONSULTANT [address] [place] [id number] PCP - General 08/25/20
--- OUTSIDE RECORDS SUMMARY | 2024-11-10 14:25 | XMS_ITS | Encounter Summary ---
Author Organization [facility] Address [address] [place] [address] Care Team Providers Care Food And Beverage Server Name Role Phone Netta Mccollum CRIMINAL RESEARCHER Primary Care Provider [phone] Encounter Details Date Type Department Care Team (Late st Contact Info) Description 11/05/2020 Lab Requisition [facility] Pathology & Laboratory Medicine - [facility] [address] [place] [address] Alan Foss MD [address] [place] [phone] Unspecified cirrhosis of liver (HCC-CMS); Melena Social History Tobacco Use Types Packs/Day Years Used Date Smoking Tobacco: Never Assessed Interpersonal Safety Answer Date Record ed Physically Hurt Never 10/10/2020 Verbally Threaten Not on file 10/10/2020 Sex and Gender Information Value Date Recorded Sex Assigned at Not on file Legal Sex Male 10:27 EST Gender Identity Not on file Sexual Orientation Not on file documented as of this encounter Plan of Treatment Not on file documented as of this encounter Procedures Procedure Name Priority Date/Time Associated Diagnosis Comments SURGICAL PATHOLOGY Today 11/04/2020 8 :40 EST Unspecified cirrhosis of liver (HCC-CMS) Melena documented in this encounter Results * SURGICAL PATHOLOGY (11/04/2020 8:40 EST) Final Diagnosis A. STOMACH, ANTRUM, BIOPSY: - Reactive (chemical) gastropathy in a background of erosive gastritis. - Negative for Helicobacter pylori organisms on H+E stained sections. B. COLON, SIGMOID, POLYP X3, BIOPSY: - Fragments of hyperplastic polyp(s). C. RECTUM, POLYP X3, BIOPSY: - Fragments of hyperplastic polyp(s). 2020 11:03 [facility] Attestation By the signature below, the attending physician certifies that they have 1) personally conducted a gross and/or microscopic examination of the described specimen(s), and/or personally interpreted the results of laboratory testing of the described specimen(s), and 2) personally rendered or confirmed the above diagnosis. 2020 11:03 [facility] at 1103 Clinical History Hematochezia, history POLLACK, cirrhosis of liver; history of colon polyps 2020 11:03 [facility] Gross Description A. Received in formalin labelled with proper patient identification (initials V, M) and antrum bx are 2 light singleton tissues measuring 0.2 x 0.2 x 0.1 cm and 0 point CX by 0.2 x 0.1 cm. Submitted intact in A1. B. Received in formalin labelled with proper patient identification (initials V, M) and sigmoid colon polyp x3 are 3 light singleton tissues ranging in size from 0.1 x 0.1 x 0.1 cm up to 0.3 x 0.3 x 0.2 cm. Submitted intact in B1. C. Received in formalin labelled with proper patient identification (initials V, M) and rectal polyp x3 are 3 light singleton tissues ranging in size from 0.2 x 0.2 x 0.1 cm up to 0.4 x 0.2 x 0.1 cm. Submitted intact in C1. YAJAIRA ROE(ASCP) 11/05/2020 18:10 2020 11:03 [facility] Performing Lab [facility] 2020 11:03 [facility] Scanned Images 2020 11:03 [facility] Tissue SPECIMEN FROM RECTUM / Unknown 11/04/2020 8:40 EST 11/05/2020 16:37 EST Tissue specimen (specimen) SIGMOID COLON STRUCTURE / Unknown 11/04/2020 8:40 EST 11/05/2020 16:37 EST Tissue specimen (specimen) SPECIMEN FROM RECTUM / Unknown 11/04/2020 8:40 EST 11/05/2020 16:37 EST us Alan Foss MD PATHOLOGY ORDERABLES Final Result [facility] [address] [place] [address] documented in this encounter Visit Diagnoses Diagnosis Unspecified cirrhosis of liver (HCC-CMS) Melena Blood in stool documented in this encounter Care Teams Food And Beverage Server Relationship Specialty Start Date End Date Netta Mccollum NP [address] [place] [id number] PCP - General 08/25/20 documented as of this encounter
--- OUTSIDE RECORDS SUMMARY | 2024-11-10 14:25 | XMS_ITS | Encounter Summary ---
Author Organization [facility] Address [address] [place] [address] Care Team Providers Care Stripping Shovel Oiler Name Role Phone Netta Mccollum SHIPYARD PAINTER HELPER Primary Care Provider [phone] Encounter Details Date Type Department Care Team (Late st Contact Info) Description 10/25/2020 Lab Requisition [facility] Pathology & Laboratory Medicine - [facility] [address] [place] [address] Outr Resulting Lab, Provider Social History Tobacco Use Types Packs/Day Years [...] Procedure Name Priority Date/Time Associated Diagnosis Comments ZZCOVID-19 TEST [facility] PCR Today 10/24/2020 15:05 EST COVID-19 TESTING Routine 10/24/2020 15:0 5 EST documented in this encounter Results * COVID-19 TEST [facility] PCR (10/24/2020 15:05 EST) Swab ENTIRE NASOPHARYNX / Unknown 10/24/2020 15:05 EST 10/27/2020 0:42 EST us Provider Outr Resulting Lab MICROBIOLOGY - GENER AL ORDERABLES Final Result [facility] [address] [place] [address] * COVID-19 TESTING (10/24/2020 15:05 EST) COVID-19 rt-PCR Result Negative Negative 10/27/2020 13:15 EST [facility] Comment: This test has not been FDA cleared or approved. This test has been authorized by FDA under an EUA for use by authorized laboratories. This test has been authorized only for detection of nucleic acid from 2019-nCoV, not for any other viruses or pathogens. This test is only authorized for the duration of the declaration that circumstances exist justifying the authorization of emergency use of in vitro diagnostic tests for detection and/or diagnosis of 2019-nCoV under section 564(b)(1) of Act, 21 U.S.C ?? 360bbb-3(b) (1), unless the authorization is terminated or revoked sooner. Negative results do not preclude 2019-nCoV infection and should not be used as the sole basis for treatment or other patient management decisions. Negative results must be combined with clinical observations, patient history, and epidemiological information. Performed on the Life800 Fusion instrument Performing Lab [facility] 10/27/2020 13:15 EST [facility] Swab 10/24/2020 15:0 5 EST 10/27/2020 0:42 EST us Provider Outr Resulting Lab MICROBIOLOGY - GENER AL ORDERABLES Final Result [facility] [address] [place] [address] documented in this encounter Visit Diagnoses Not on filedocumented in this encounter Care Teams Stripping Shovel Oiler Relationship Specialty Start Date End Date Netta Mccollum NP [address] [place] [phone] PCP - General 08/25/20 documented as of this encounter
--- OUTSIDE RECORDS SUMMARY | 2024-11-10 14:25 | XMS_ITS | Referral Summary ---
Author Organization [facility] Address [address] [place] [address] Care Team Providers Care Desilverizer Name Role Phone Netta Mccollum MILKING SYSTEM INSTALLER Primary Care Provider [phone] Social History Tobacco Use Types Packs/Day Years Used Date Smoking Tobacco: Never Assessed Interpersonal Safety Answer Date Record ed Physically Hurt Never 10/10/2020 Verbally Threaten Not on file 10/10/2020 Sex and Gender Information Value Date Recorded Sex Assigned at Not on file Legal Sex Male 10:27 EST Gender Identity Not on file Sexual Orientation Not on file Plan of Treatment Not on file Insurance MEDICAID [facility] [address] [place] [id number] Care Teams Desilverizer Relationship Specialty Start Date End Date Netta Mccollum NP [address] [place] [id number] PCP - General 08/25/20
--- OUTSIDE RECORDS SUMMARY | 2024-11-10 14:25 | XMS_ITS | Encounter Summary ---
Author Organization [facility] Address [address] [place] [address] Care Team Providers Care Manager Research Name Role Phone Netta Mccollum SMALL ARMS ARTILLERY REPAIRER Primary Care Provider [phone] Encounter Details Date Type Department Care Team (Late st Contact Info) Description 10/28/2021 Lab Requisition [facility] Pathology & Laboratory [facility] - [facility] [address] [place] [address] Alan Foss MD [address] [place] [place] [phone] Nonalcoholic steatohepatitis (POLLACK); Unspecified cirrhosis of liver (HCC-CMS) (HCC) (HCC-CMS); Secondary esophageal varices without bleeding (HCC-CMS) (HCC); Portal hypertension (HCC-CMS) Social History Tobacco Use Types Packs/Day Years [...] Date/Time Associated Diagnosis Comments SURGICAL PATHOLOGY Today 10/27/2021 9: 32 EST Nonalcoholic steatohepatitis (POLLACK) Unspecified cirrhosis of liver (HCC-CMS) (HCC) Secondary esophageal varices without bleeding (HCC-CMS) (HCC) Portal hypertension (HCC-CMS) (HCC) documented in this encounter Results * SURGICAL PATHOLOGY (10/27/2021 9:32 EST) Note to Patient The following pathology results have been interpreted by your pathologist and may be available to you before your health provider has had the opportunity to review them. Please allow time for your provider to receive these results and explore management options, if applicable. 10/30/2021 9:33 [facility] Final Diagnosis A. STOMACH, ANTRUM, BIOPSY: - Antral mucosa with reactive (chemical) gastropathy. - Negative for Helicobacter pylori on H&E stained sections. B. STOMACH, BODY, BIOPSY: - Gastric fundus mucosa with no significant diagnostic abnormalities. - Negative for Helicobacter pylori on H&E stained sections. 10/30/2021 9:33 [facility] Attestation There was significant resident/fellow involvement in the diagnostic evaluation of this case. By the signature below, the attending physician certifies that they have personally conducted a gross and/or microscopic examination of the described specimens and rendered or confirmed the above diagnosis. 10/30/2021 9:33 [facility] at 0933 Clinical History History POLLACK, cirrhosis of liver, esophageal varices, portal hypertension; esophageal erosions, GAVE 10/30/2021 9:33 [facility] Gross Description A. Received in formalin labelled with proper patient identification (initials V, M) and gastric antrum are 3 light singleton tissues ranging in size from 0.1 x 0.1 x 0.1 cm up to 0.3 x 0.2 x 0.1 cm. Submitted intact in A1. B. Received in formalin labelled with proper patient identification (initials V, M) and gastric body is a singleton-pink tissue measuring 0.3 x 0.3 x 0.2 cm. Submitted intact in B1. YAJAIRA ROE(ASCP) 10/28/2021 18:46 10/30/2021 9:33 [facility] Resident/Constantine w: Anastacia Nagel MD 10/30/2021 9:33 [facility] Performing Lab [facility] 10/30/2021 9:33 [facility] Scanned Images 10/30/2021 9:33 EST [facility] Tissue ENTIRE STOMACH / Unknown 10/27/2021 9:32 EST 10/28/2021 17:10 EST Tissue specimen (specimen) STOMACH STRUCTURE / Unknown 10/27/2021 9:32 EST 10/28/2021 17:10 EST us Alan Foss MD PATHOLOGY ORDERABLES Final Result [facility] [address] [place] [address] documented in this encounter Visit Diagnoses Diagnosis Nonalcoholic steatohepatitis (POLLACK) Other chronic nonalcoholic liver disease Unspecified cirrhosis of liver (HCC-CMS) Secondary esophageal varices without bleeding (HCC-CMS) Esophageal varices without mention of bleeding in diseases classified elsewhere Portal hypertension (HCC-CMS) Portal hypertension documented in this encounter Care Teams Manager Research Relationship Specialty Start Date End Date Netta Mccollum NP [address] [place] [id number] PCP - General 08/25/20 documented as of this encounter
--- OUTSIDE RECORDS SUMMARY | 2024-11-10 14:25 | XMS_ITS | Encounter Summary ---
Author Organization [facility] Address [address] [place] [address] Care Team Providers Care Associate Art Director Name Role Phone Netta Mccollum COMPENSATION BUSINESS PARTNER Primary Care Provider [phone] Encounter Details Date Type Department Care Team (Late st Contact Info) Description 08/27/2022 Lab Requisition [facility] Pathology & Laboratory Medicine - [facility] [address] [place] [address] Netta Mccollum, COMPENSATION BUSINESS PARTNER [address] [place] [address] Encounter for other general examination Social History Tobacco Use Types Packs/Day Years [...] Date/Time Associated Diagnosis Comments SURGICAL PATHOLOGY Today 08/26/2022 15 :45 EDT Encounter for other general examination documented in this encounter Results * SURGICAL PATHOLOGY (08/26/2022 15:45 EDT) Note to Patient The following pathology results have been interpreted by your pathologist and may be available to you before your health provider has had the opportunity to review them. Please allow time for your provider to receive these results and explore management options, if applicable. 08/28/2022 13:33 EDT [facility] Final Diagnosis Note to pathologist: The specimen was collected 08/26/2022 at 15:45 hours. There is a notation on the specimen container and specimen requisition slip at formalin was added to the specimen at 11:15 hours on 08/27/2022. A. SKIN OF FINGER, RIGHT MEDIAL THIRD, SHAVE BIOPSY: - Stratum corneum with yeast forms. See comment 08/28/2022 13:33 [facility] Diagnosis Comment Multiple levels are reviewed. Epidermis is not seen. There is stratum corneum with admixed, numerous yeast. 08/28/2022 13:33 [facility] Attestation By the signature below, the attending physician certifies that they have 1) personally conducted a gross and/or microscopic examination of the described specimen(s), and/or personally interpreted the results of laboratory testing of the described specimen(s), and 2) personally rendered or confirmed the above diagnosis. 08/28/2022 13:33 [facility] at 1333 Clinical History Crusted; ? hyperkeratotic lesion 08/28/2022 13:33 [facility] Gross Description A. Received in formalin labelled with proper patient identification (initials V, M) and right medial 3rd finger are 4 friable singleton-white tissue ranging in size from 0.2 x 0.2 x 0.1 cm up to 0.4 x 0.3 x 0.1 cm. Submitted intact in A1. YAJAIRA ROE(ASCP) 08/27/2022 18:57 08/28/2022 13:33 [facility] Performing Lab [facility] 08/28/2022 13:33 [facility] Scanned Images 08/28/2022 13:33 [facility] Tissue TISSUE SPECIMEN FROM SKIN / Unknown 08/26/2022 15:45 EDT 08/27/2022 17:45 EDT us Netta Mccollum NP PATHOLOGY ORDERABLES Final Resul t [facility] [address] [place] [address] documented in this encounter Visit Diagnoses Diagnosis Encounter for other general examination documented in this encounter Care Teams Associate Art Director Relationship Specialty Start Date End Date Netta Mccollum NP [address] [place] [id number] PCP - General 08/25/20 documented as of this encounter
--- OUTSIDE RECORDS SUMMARY | 2024-11-10 14:25 | XMS_ITS | Encounter Summary ---
Author Organization [facility] Address [address] [place] [address] Care Team Providers Care Bobbin Washer Name Role Phone Netta Mccollum COMMISSIONING AGENT Primary Care Provider [phone] Encounter Details Date Type Department Care Team (Late st Contact Info) Description 04/26/2024 Lab Requisition [facility] Pathology & Laboratory Medicine - [place] [address] [place] [address] Arlette Mackenzie, DO [address] [place] [address] Encounter for other general examination Social History [...] Date/Time Associated Diagnosis Comments SURGICAL PATHOLOGY Today 04/25/2024 9: 00 EDT Encounter for other general examination documented in this encounter Results * SURGICAL PATHOLOGY (04/25/2024 9:00 EDT) Note to Patient The following pathology results have been interpreted by your pathologist and may be available to you before your health provider has had the opportunity to review them. Please allow time for your provider to receive these results and explore management options, if applicable. 05/03/2024 12:55 EDT [facility] Final Diagnosis A. HEMORRHOIDS, HEMORRHOIDECTOMY: - Benign hemorrhoidal tissue. 05/03/2024 12:55 T [facility] Attestation There was significant resident/fellow involvement in the diagnostic evaluation of this case. By the signature below, the attending physician certifies that they have personally conducted a gross and/or microscopic examination of the described specimens and rendered or confirmed the above diagnosis. 05/03/2024 12:55 [facility] at 1255 Clinical History Internal and external hemorrhoids 05/03/2024 12:55 T [facility] Gross Description A. Received in formalin labelled with proper patient identification (initials V, M) and hemorrhoids are 4 rubbery tissues (0.8 x 0.7 x 0.4 cm to 1.8 x 1.0 x 0.9 cm). The tissues are partially covered by white-manzo mucosa and possible skin. The specimen is serially sectioned to reveal dilated, congested vessels to singleton-white rubbery cut surfaces. [employer] Sales[employer] sections are submitted in A1 and A2. YAJAIRA YATES(ASCP) 04/26/2024 9:07 05/03/2024 12:55 T [facility] Resident/Constantine w: Evangelina Montiel MD PhD 05/03/2024 12:55 T [facility] Performing Lab [facility] 05/03/2024 12:55 T [facility] Scanned Images 05/03/2024 12:55 [facility] Tissue HEMORRHOIDS / Unknown 04/25/2024 9:00 EDT 04/26/2024 8:45 EDT us Arlette Mackenzie DO PATHOLOGY ORDERABLES Final Re sult [facility] [address] [place] [address] documented in this encounter Visit Diagnoses Diagnosis Encounter for other general examination documented in this encounter Care Teams Bobbin Washer Relationship Specialty Start Date End Date Netta Mccollum NP [address] [place] [id number] PCP - General 08/25/20 documented as of this encounter
--- OUTSIDE RECORDS SUMMARY | 2024-11-10 14:25 | XMS_ITS | Continuity of Care Document ---
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 Weight??(Estimated) 235.03 lb (106.59 kg) Allergies No Known Allergies What to Do Next Instructions from Your Care Team Rest. ??Ibuprofen as prescribed for pain. ??Follow-up with regular doctor or return??for worsening symptoms You were treated today on an emergency basis; it may be monzon to contact your primary care provider to notify them of your visit today. You may have been referred to your regular doctor or a specialist, please follow up as instructed. If your condition worsens or you can't get in to see the doctor, contact the Emergency Department. Medications What How Much When Instructions Next Dose New ibuprofen (ibuprofen 600 mg oral tablet) 1 tab Oral (given by mouth) Every 6 hours as needed for as needed for pain Pickup at [facility] Unchanged atorvastatin (atorvastatin 10 mg oral tablet) TAKE 1 TABLET BY MOUTH EVERY NIGHT ?? Unchanged cholecalciferol (Vitamin D3 2000 intl units oral tablet) TAKE 1 TABLET BY MOUTH DAILY ?? Unchanged empagliflozin (Jardiance 10 mg oral tablet) TAKE 1 TABLET BY MOUTH EVERY DAY ?? Unchanged gabapentin (gabapentin 100 mg oral capsule) TAKE ONE CAPSULE BY MOUTH THREE TIMES A DAY ?? Unchanged losartan (losartan 100 mg oral tablet) TAKE ONE TABLET BY MOUTH EVERY DAY ?? Unchanged metFORMIN (metFORMIN 1000 mg oral tablet) TAKE 1 TABLET BY MOUTH TWICE DAILY ?? Unchanged nadolol (nadolol 20 mg oral tablet) TAKE 1 TABLET BY MOUTH EVERY DAY ?? Unchanged pantoprazole (pantoprazole 40 mg oral delayed release tablet) TAKE 1 TABLET BY MOUTH EVERY DAY 30 MINUTES BEFORE SUPPER ?? Unchanged traZODone (traZODone 50 mg oral tablet) 1 tab Oral (given by mouth) 3 times a day Pharmacy Information [facility]: [address] [place], [place] [id number] [phone] [employer] Muscle Strain A muscle strain is an injury that occurs when a muscle is stretched beyond its normal length. Usually, a small number of muscle fibers are torn when this happens. There are three types of muscle strains. First-degree strains have the least amount of muscle fiber tearing and the least amount of pain. Second-degree and third-degree strains have more tearing and pain. Usually, recovery from muscle strain takes 1???2 weeks. Complete healing normally takes 5???6 weeks. What are the causes? This condition is caused when a sudden, violent force is placed on a muscle and stretches it too far. This may occur with a fall, while lifting, or during sports. What increases the risk? This condition is more likely to develop in athletes and people who are physically active. What are the signs or symptoms? Symptoms of this condition include: ? Pain. ? Tenderness. ? Bruising. ? Swelling. ? Trouble using the muscle. How is this diagnosed? This condition is diagnosed based on a physical exam and your medical history. Tests may also be done, including an X-ray, ultrasound, or MRI. How is this treated? This condition is initially treated with BAILEY therapy. This therapy involves: ? Protecting the muscle from being injured again. ? Resting the injured muscle. ? Icing the injured muscle. ? Applying pressure (compression) to the injured muscle. This may be done with a splint or elastic bandage. ? Raising (elevating) the injured muscle. Your health care provider may also recommend medicine for pain. Follow these instructions at home: If you have a removable splint: ? Wear the splint as told by your health care provider. Remove it only as told by your health care provider. ? Check the skin around the splint every day. Tell your health care provider about any concerns. ? Loosen the splint if your fingers or toes tingle, become numb, or turn cold and blue. ? Keep the splint clean. ? If the splint is not waterproof: ? Do not let it get wet. ? Cover it with a watertight covering when you take a bath or a shower. Managing pain, stiffness, and swelling ? If directed, put ice on the injured area. To do this: ? If you have a removable splint, remove it as told by your health care provider. ? Put ice in a plastic bag. ? Place a towel between your skin and the bag. ? Leave the ice on for 20 minutes, 2???3 times a day. ? Remove the ice if your skin turns bright red. This is very important. If you cannot feel pain, heat, or cold, you have a greater risk of damage to the area. ? Move your fingers or toes often to reduce stiffness and swelling. ? Raise (elevate) the injured area above the level of your heart while you are sitting or lying down. ? Wear an elastic bandage as told by your health care provider. Make sure that it is not too tight. General instructions ? Take wbpq-[id number] and prescription medicines only as told by your health care provider. Treatment may include muscle relaxants or medicines for pain and inflammation that are taken by mouth or applied to the skin. ? Restrict your activity and rest the injured muscle as told by your health care provider. Gentle movements may be allowed. ? If physical therapy was prescribed, do exercises as told by your health care provider. ? Do not put pressure on any part of the splint until it is fully hardened. This may take several hours. ? Do not use any products that contain nicotine or tobacco. These products include cigarettes, chewing tobacco, and vaping devices, such as e-cigarettes. If you need help quitting, ask your health careprovider. ? Ask your health care provider when it is safe to drive if you have a splint. ? Keep all follow-up visits. This is important. How is this prevented? Warm up before exercising. This helps to prevent future muscle strains. Contact a health care provider if: ? You have more pain or swelling in the injured area. Get help right away if: ? You have numbness or tingling in the injured area. ? You lose a lot of strength in the injured area. Summary ? A muscle strain is an injury that occurs when a muscle is stretched beyond its normal length. ? This condition is caused when a sudden, violent force is placed on a muscle and stretches it too far. ? This condition is initially treated with BAILEY therapy, which involves protecting, resting, icing, compressing, and elevating. ? Gentle movements may be allowed. If physical therapy was prescribed, do exercises as told by your health care provider. This information is not intended to replace advice given to you by your health care provider. Make sure you discuss any questions you have with your health care provider. Document Revised: 12/29/2021 Document Reviewed: 12/29/2021 Elsevier Patient Education ?? 2021 [email or web address] Tests Performed Radiology CT Abdomen and Pelvis w/ Contrast 01/06/2023 17:[address] Chest w/ Contrast 01/06/2023 16:[address] Head w/o Contrast 01/06/2023 16:[address] Spine Cervical w/o Contrast 01/06/2023 16:54 EDT XR Shoulder Complete 2+ Views Right 01/06/2023 17:04 EDT Medications and Immunizations Administered Given Toradol, 30 mg, IV Patient/[facility] [employer] Signature Patient Name:MADDISON POLANCO SR I have received this information and my questions have been answered. Patient/[facility] All Around Name: Patient/[facility] [employer] Signature: Relationship to Patient: Witness Name/Signature: Date: Electronically Signed on: 01/06/2023 17:52 EDTSigned by:COSME CT Head WO contrast * Carlton Boyer MD: VERIFY, VERIFY Event Display: Report EXAM DESCRIPTION: CT Head w/o Contrast 01/06/2023 INDICATION: TRAUMA TECHNIQUE: All CT scans at this facility use at least one of these dose optimization techniques: Automated exposure control; mA and/or kV adjustment per patient size (includes targeted exams where dose is matched to clinical indication); or iterative reconstruction. Axial CT images of the head without contrast. COMPARISON: None FINDINGS: No acute intracranial hemorrhage, mass effect or midline shift. No hydrocephalus. Russell-white differentiation is maintained. Basal cisterns remain patent. The calvarium appears intact. Left maxillary sinus mucosal thickening. Remaining visualized paranasal sinuses are grossly clear. IMPRESSION: No acute intracranial hemorrhage, mass effect or midline shift. JOB #: [id number] Final Signed by: Carlton Boyer MD Signed (Electronic Signature): 01/06/2023 4:[address] Cervical spine WO contrast * Carlton Boyer MD: VERIFY, VERIFY Event Display: Report EXAM DESCRIPTION: CT Spine Cervical w/o Contrast 01/06/2023 INDICATION: TRAUMA TECHNIQUE: All CT scans at this facility use at least one of these dose optimization techniques: Automated exposure control; mA and/or kV adjustment per patient size (includes targeted exams where dose is matched to clinical indication); or iterative reconstruction. CT examination of the cervical spine with thin section axial images including sagittal and coronal MPR images performed on a separate workstation under concurrent supervision. COMPARISON: None FINDINGS: No acute fracture or subluxation. Prevertebral soft tissues are within normal limits. Spondylotic changes at C5-6 and C6-7 with intervertebral disc space narrowing and endplate osteophyte formation. No focal lytic or sclerotic lesion. Paraspinal soft tissues are unremarkable. IMPRESSION: No acute fracture or subluxation. JOB #: [id number] Final Signed by: Carlton Boyer MD Signed (Electronic Signature): 01/06/2023 4:[address] Chest W contrast IV * Carlton Boyer MD: VERIFY, VERIFY Event Display: Report EXAM DESCRIPTION: CT Chest w/ Contrast 01/06/2023 INDICATION: TRAUMA TECHNIQUE: All CT scans at this facility use at least one of these dose optimization techniques: Automated exposure control; mA and/or kV adjustment per patient size (includes targeted exams where dose is matched to clinical indication); or iterative reconstruction. Technique: Axial CT images of the chest with IV contrast administration 100 cc of Isovue-300 contrast was utilized COMPARISON: None FINDINGS: No mediastinal hematoma or pericardial effusion. No mediastinal, hilar or axillary adenopathy. No central pulmonary artery filling defect identified. Normal caliber thoracic aorta. No pulmonary contusion, focal infiltrate or pulmonary mass. Minimal subsegmental atelectasis or scarring in the posterior aspect of both lower lobes. No significant emphysematous changes. No central endobronchial filling defect identified No pleural effusion or pneumothorax Regional osseous structures appear intact with no acute traumatic injury. Spondylotic changes in the visualized spinal axis. IMPRESSION: No acute traumatic injury in the chest. JOB #: [id number] Final Signed by: Carlton Boyer MD Signed (Electronic Signature): 01/06/2023 4:[address] Abdomen and Pelvis W contrast IV * Carlton Boyer MD: VERIFY, VERIFY Event Display: Report EXAM DESCRIPTION: CT Abdomen and Pelvis w/ Contrast 01/06/2023 INDICATION: TRAUMA TECHNIQUE: All CT scans at this facility use at least one of these dose optimization techniques: Automated exposure control; mA and/or kV adjustment per patient size (includes targeted exams where dose is matched to clinical indication); or iterative reconstruction. Technique: Axial CT images of the abdomen/pelvis with IV contrast administration 100 cc of Isovue-300 contrast was utilized COMPARISON: None FINDINGS: No focal hepatic injury or mass. Normal enhancement of the main portal vein. The spleen is mildly enlarged measuring 15 cm in maximum dimension. No focal splenic injury or mass. Small calcified gallstones in the gallbladder. No gallbladder inflammatory changes Adrenal glands and pancreas appear within normal limits. No focal renal injury, mass, hydronephrosis or perinephric fluid collection on either side Normal caliber abdominal aorta with scattered atherosclerotic calcifications. No retroperitoneal adenopathy in the abdomen or pelvis. No bowel dilatation to suggest obstruction or ileus. No free intraperitoneal air, ascites or inflammatory changes. Normal appendix. Regional osseous structures appear intact with no acute traumatic injury. No suspicious regional osseous lesions. Spondylotic changes in the visualized spinal axis. IMPRESSION: No acute traumatic injury in the abdomen or pelvis. Cholelithiasis Mild splenomegaly JOB #: [id number] Final Signed by: Carlton Boyer MD Signed (Electronic Signature): 01/06/2023 5:01 pm XR Shoulder - right GE 2 Views * Carlton Boyer MD: VERIFY, VERIFY Event Display: Report EXAM DESCRIPTION: XR Shoulder Complete 2+ Views Right 01/06/2023 INDICATION: TRAUMA COMPARISON: None IMPRESSION: No acute fracture or dislocation AC joint osteoarthritic changes with joint space narrowing and osteophyte formation. Mild glenohumeral joint arthritic changes with joint space narrowing. No focal lytic or sclerotic lesion. JOB #: [id number] Final Signed by: Carlton Boyer MD Signed (Electronic Signature): 01/06/2023 5:01 pm Patient Care team information Care Team Personnel Name: Raheem Wheat MD Position: Physician Member Role: Attending Physician Address: Address: [address] [place] [id number] [place] Name: Nathalie Moscoso Position: Nurse Member Role: Registered Nurse Care Team Related Persons Name: CASEY POLANCO JR
--- OUTSIDE RECORDS SUMMARY | 2024-11-10 14:25 | XMS_ITS | Encounter Summary ---
Author Organization [facility] Address [address] [place] [address] Care Team Providers Care Administrative Intern Name Role Phone Netta Mccollum SENIOR PROFESSIONAL SERVICES CONSULTANT Primary Care Provider [phone] Encounter Details Date Type Department Care Team (Late st Contact Info) Description 10/09/2020 Lab Requisition [facility] - [address] [address] Outr Resulting Lab, Provider Social History Tobacco [...] Comments ZZCOVID-19 TEST [facility] PCR Today 10/08/2020 13:00 EST COVID-19 TESTING Routine 10/08/2020 13:0 0 EST documented in this encounter Results * COVID-19 TEST [facility] PCR (10/08/2020 13:00 EST) Swab ENTIRE NASOPHARYNX / Unknown 10/08/2020 13:00 EST 10/09/2020 16:28 EST us Provider Outr Resulting Lab MICROBIOLOGY - GENER AL ORDERABLES Final Result [facility] [address] [place] [address] * COVID-19 TESTING (10/08/2020 13:00 EST) COVID-19 rt-PCR Result Negative Negative 10/10/2020 16:31 EST [facility] Comment: Negative results do not preclude 2019-nCoV infection and should not be used as the sole basis for treatment or other patient management decisions. Negative results must be combined with clinical observations, patient history, and epidemiological information. This test was developed and its performance characteristics determined by [facility]. It has not been cleared or approved by the US Food and Drug Administration. FDA does not require this test to go through premarket FDA review. This test is used for clinical purposes. It should not be regarded as investigational or for research. This laboratory is certified under the Clinical Laboratory Improvement Amendments (CLIA) as qualified to perform high complexity clinical laboratory testing. This test is based on the CDC COVID-19 Emergency Use Authorization (EUA) assay, with minor modification as defined by the FDA Performed on the [employer] 7 Flex. Performing Lab Tokopediastudio 7 [facility] 10/10/2020 16:31 EST [facility] Swab 10/08/2020 13:0 0 EST 10/09/2020 16:28 EST us Provider Outr Resulting Lab MICROBIOLOGY - GENER AL ORDERABLES Final Result [facility] [address] [place] [address] documented in this encounter Visit Diagnoses Not on filedocumented in this encounter Care Teams Administrative Intern Relationship Specialty Start Date End Date Netta Mccollum NP [address] [place] [id number] PCP - General 08/25/20 documented as of this encounter
== END 2024-11-10 14:43 ==
LOC: DI 14:23
PROVIDERS: PCP Family Medicine; Visit Provider Family Medicine
DX: M51.369 Other intervertebral disc degeneration, lumbar region without mention of lumbar back pain or lower extremity pain (principal)
CPT/HCPCS: 72110

== ENCOUNTER 2024-11-30 00:38 | Outpatient (CLI) | payer MEDICAID, SELFPAY ==
--- NOTE | 2024-11-30 10:10 | DI.MRI_ITS ---
Exam(s) MR LUMBAR SPINE WO EXAM: MR LUMBAR SPINE WO CLINICAL HISTORY: ? lumbar involvement,MERALGIA PARESTHETICA LT SIDE,G57.12. TECHNIQUE: Multiplanar multisequence MRI of the Lumbar spine was performed. COMPARISON: CR XR LUMBAR SPINE COMPLETE from 11/10/2024 FINDINGS: Bones: The last intervertebral disc space is designated the L5/S1 level for the numbering purpose of this ex amination. The vertebral body heights are well maintained. Alignment: Unremarkable. The marrow signal characteristics are unremarkable. Cord: The conus tip ends at the T12 level. It is of normal size and signal intensity. T12-L1: Tiny left paracentral disc protrusion. Mild disc bulging.. No central spinal canal stenosis .No neural foraminal stenosis. L1-2:Mild disc bulging. No focal disc herniation is present. No central spinal canal stenosis.No ne ural foraminal stenosis. L2-3:Mild disc bulging, greater on right. No focal disc herniation is present. No central spinal ca nal stenosis.No neural foraminal stenosis. L3-4: Mild disc bulging, greater on the left.No focal disc herniation is present. Mild facet degener ative changes and ligamentous hypertrophy. No central spinal canal stenosis.Mild left neural forami nal stenosis. L4-5:Mild loss of disc height. Small endplate osteophytes. Mild disc bulging. No focal disc hernia tion is present. Mild facet degenerative changes. Mild central spinal canal stenosis.Mild left neur al foraminal stenosis. L5-S1: Moderate to severe loss of disc height. Endplate osteophytes eccentric toward the right. No focal disc herniation is present. Facet degenerative changes, greater on the right. No central spin al canal stenosis.Severe bilateral neural foraminal stenosis. The visualized SI joints and sacrum are unremarkable. Soft tissues: The paraspinal soft tissues are unremarkable. IMPRESSION: Degenerative disc changes and facet degenerative changes, greatest at L5-S1, causing severe bilateral neural foraminal narrowing. Mild central canal stenosis at L4-5 secondary to a combination of degenerative changes. DATA REPOSITORY:
== END 2024-11-30 00:58 ==
LOC: DI 00:47
PROVIDERS: PCP Family Medicine; Visit Provider Family Medicine
DX: G57.12 Meralgia paresthetica, left lower limb (principal)
CPT/HCPCS: 72148

== ENCOUNTER 2025-01-02 10:08 | Outpatient (CLI) | payer MEDICAID, SELFPAY ==
--- NOTE | 2025-01-02 10:10 | PDOC.PAIN ---
Date of service: 01/02/25 Time of Service: 11:12 Pain Managment Procedure Note Procedure Note Procedure Note: Preoperative diagnosis: 1. meralgia paresthetica left G57.12 2.? Chronic pain syndrome Postoperative diagnosis: 1. meralgia paresthetica 2.? Chronic pain syndrome LEFT sided ultrasound guided lateral femoral?cutaneous nerve (LFCN) block Surgeon: Oliver Alvarenga MD Anesthesia: Local Sedation: none Complications: None EBL: <1ml COMMENT: Description of procedure: The patient was met in the preoperative area.? A discussion of the risk benefits and alternatives ensued.? Informed sent was obtained and surgical david was placed over the LEFT thigh.? The patient was then brought to the procedure area and placed in the supine position on the fluoroscopy table.? The skin overlying the left upper thigh and was then widely prepped and draped in normal fashion with chlorhexidine skin prep.? Utilizing ultrasound guidance the left satorius and tensor fascia latae muscle was then identified with the LFCN lateral to the satorius .? The skin was anesthetized with 2 mL of 1% lidocaine.? Through the anesthetized tissue was passed a 21-gauge 100mm Pajunk needle advanced under ultrasound guidance until the proper needle position was obtained.? Again under direct ultrasound guidance a total of 3 mL of 0.5% bupivacaine with 40 mg depomedrol was injected circumferentially around the LFCN nerve.? The needle was then withdrawn and a sterile bandage dressing was placed over the needle insertion site.? The patient was brought to the recovery area and monitored post procedurally with no immediate post-procedural complications noted.? The patient was subsequently discharged home in satisfactory stable condition with postprocedural instructions and follow-up appoint provided Plan: f/u PRN PAIN PRE-PROCEDURE 06/03 POST PROCEDURE COMMENT: Patient was also complaining of back pain. I reviewed his MRI with him. He has multiple levels of degenerative disc disease worse at L5-S1 with Modic changes and on exam positive Kemps maneuver. He does have foraminal stenosis at L5-S1 but no radicular symptoms. We discussed medial branch blocks and radiofrequency ablation. I have given him literature to review and he will get back to me if he would like to proceed with medial branch blocks. Coding Conscious Sedation used for procedure: No CPT Codes: Lateral Femoral Cutaneous - 96160 ([id number] ~G) ultrasound guidance Additional Codes: Date of Service (06771) Date of service: 01/02/25
[2025-01-02 10:25] VITALS: BP 121/73; PULSE 72; RESP 18; TEMP 37.1; O2SAT 96
[2025-01-02 10:51] VITALS: PULSE 68; O2SAT 94
[2025-01-02 11:00] VITALS: PULSE 72; O2SAT 93
[2025-01-02] MEDS: Nerve Block Tray 1 EACH MC (11:04)
[2025-01-02] MEDS: methylPREDNISolone ACETATE 40 MG/ML VIAL IJ (11:05)
[2025-01-02] MEDS: Bupivacaine 0.5% Pres-Free 10 ML VIAL IJ (11:05)
--- NOTE | 2025-01-02 11:14 | PDOC.PAIN_ITS ---
Coding Conscious Sedation used for procedure: No
--- NOTE | 2025-01-02 11:14 | PDOC.PAIN ---
Coding Conscious Sedation used for procedure: No
== END 2025-01-02 10:09 | disposition home or self-care (01) ==
LOC: PC 10:09
PROVIDERS: PCP Family Medicine; Visit Provider Anesthesiology Pain Medicine
DX: G57.12 Meralgia paresthetica, left lower limb (principal); G89.29 Other chronic pain
CPT/HCPCS: 64447; J0665; J1010

== ENCOUNTER 2025-02-07 12:30 | Outpatient (CLI) | payer MEDICAID, SELFPAY ==
[2025-02-07 12:40] VITALS: BP 133/81; PULSE 59; RESP 18; TEMP 36.6; O2SAT 97
--- NOTE | 2025-02-07 12:48 | PDOC.PAIN_ITS ---
Date of service: 02/07/25 Time of Service: 13:17 Pain Managment Procedure Note Procedure Note Procedure Note: Lumbar Transforaminal Epidural Steroid Injection ? Location: LEFT L5-S1 ? Pre-procedure Diagnosis: M54.17-Radiculopathy, lumbosacral region M54.16 Radiculopathy, lumbar region ? Post-procedure Diagnosis:? The same as above ? Sedation:? none ? Estimated blood loss:? less than 2 cc ? Surgeon:? Oliver Alvarenga MD COMMENT: Patient has severe foraminal stenosis at L5-S1 left leg pain. ? Procedure Detail:?? The procedure and potential risks were explained to the patient and informed written consent was obtained. The patient was escorted to the procedure room and placed in the prone position. Pillows were utilized for proper positioning and comfort. Time out was performed in the procedure room with nursing staff confirming the patient's identity, procedure to be performed, allergies, and any blood thinning or anti-platelet medications. The patient's lower back was prepped with ChloraPrep and draped in a sterile fashion. Sterile gloves were used, a face mask was worn, and new single dose vials of all medications were used with the top being swabbed with alcohol and given time to dry prior to withdrawal of medication. A LEFT-sided oblique fluoroscopic view was obtained, with visualization of L5-S1. Lidocaine 1% was used to anesthetize the skin. The tip of a 22-gauge, Quincke needle was advanced toward the 6 o'clock position of the superior pedicle at the target level.? It was advanced just under the pedicle to the neural foramen L5-S1. Correct needle placement was confirmed through review of the fluoroscopy. Next, following negative aspiration, 1cc's of Omnipaque 240 contrast was injected under live fluoroscopy which showed good flow throughout the epidural space and no evidence of vascular flow or flow into adjacent compartments. Next, following negative aspiration, 40mg Depo-Medrol and 0.5ml of 0.5% bupivacaine was injected. The needle was gently removed.? ? The patient tolerated the procedure well.? Permanent images saved and recorded. Plan:? 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 Coding Conscious Sedation used for procedure: No CPT Codes: Transforaminal Lumbar/Sacral (includes fluoro) - 01443 ([id number] ~G) Additional Codes: Date of Service (94086) Date of service: 02/07/25
[2025-02-07 13:04] VITALS: PULSE 69; O2SAT 93
[2025-02-07 13:10] VITALS: PULSE 62; O2SAT 96
[2025-02-07] MEDS: Nerve Block Tray 1 EACH MC (13:22)
[2025-02-07] MEDS: Omnipaque 240 MG/ML 50 ML BTL IJ (13:22)
[2025-02-07] MEDS: Bupivacaine 0.5% Pres-Free 10 ML VIAL IJ (13:23)
[2025-02-07] MEDS: methylPREDNISolone ACETATE 40 MG/ML VIAL IJ (13:23)
--- NOTE | 2025-02-07 13:24 | DI.RAD_ITS ---
Exam(s) XR PAIN CLINIC LUMBAR SP 2V EXAM: XR PAIN CLINIC LUMBAR SP 2V CLINICAL HISTORY: Dx: Lumbar Radiculopathy. TECHNIQUE: Fluoroscopy was provided for the referring physician for guidance with performing pain cl inic injection procedure. COMPARISON: No exams were available for comparison FINDINGS: Please see procedure note for details. Fluoro time: 26.6 seconds RADIATION DOSE DELIVERED: Ka,r=15.74 mGy
== END 2025-02-07 12:31 | disposition home or self-care (01) ==
LOC: PC 12:30
PROVIDERS: PCP Family Medicine; Visit Provider Anesthesiology Pain Medicine
DX: M54.17 Radiculopathy, lumbosacral region (principal)
CPT/HCPCS: 64483; 72100; J0665; J1010; Q9967